=== PATIENT | female | born 1990 | race Caucasian/White ===

== ENCOUNTER 2019-01-22 14:38 | Emergency (ER) | payer OTHER ==
[~2019-01-22] VITALS: Ht 167.6 cm; Wt 74.8 kg
[~2019-01-22 14:38] MED LIST: ACET325 PO; Acetaminophen-1 EAC1 PO; Bactrim Ds Tab1 EACH PO; CYCL10 PO; HYDACE5 PO; HYDHCL25 PO; IBUP600 PO; IBUP800 PO; MULVITMINE; RXCYCL10 PO; RXHYDACE PO
[2019-01-22] MEDS ORDERED: CYCL10 PO (17:03)
[2019-01-22] MEDS ORDERED: Percocet 5-3251 EACH PO (17:03)
== END 2019-01-22 17:29 | disposition home or self-care (01) ==
LOC: ER 14:38
DX: S93.402A Sprain of unspecified ligament of left ankle, initial encounter (principal); Z88.8 Allergy status to other drugs, medicaments and biological substances; Z87.891 Personal history of nicotine dependence; X58.XXXA Exposure to other specified factors, initial encounter
CPT/HCPCS: 99283

== ENCOUNTER 2019-01-26 11:42 | Emergency (ER) | payer OTHER ==
[~2019-01-26] VITALS: Ht 167.6 cm; Wt 77.1 kg
[~2019-01-26 11:42] MED LIST changes: +Percocet 5-3251 EACH PO
[2019-01-26] MEDS ORDERED: Percocet 5-3251 EACH PO (11:57)
[2019-01-26] MEDS ORDERED: QUET25 (11:57)
[2019-01-26] MEDS ORDERED: PRAZ2 (11:58)
[2019-01-26] MEDS ORDERED: LATUDA20 MG (11:58)
[2019-01-26 13:02] LABS: Source, Urine Clean Catch
[2019-01-26 13:07] LABS: Bilirubin, Urine Neg (Neg); Blood, Urine 2+ (Neg); Glucose Qualitative, Urine Neg (Neg); Ketones, Urine Neg (Neg); Leukocyte Esterase, Urine 3+ (Neg); Nitrite, Urine Neg (Neg); Protein, Urine 2+ (Neg); Urobilinogen, Urine 1+ (Normal); pH, Urine 6.5 (5.0-8.0)
[2019-01-26] MEDS ORDERED: IBUP400 PO (13:26)
[2019-01-26] MEDS ORDERED: FAMC250 PO (13:26)
[2019-01-26] MEDS ORDERED: HYDR1TAB94 PO (13:26)
[2019-01-26 13:31] LABS: Appearance, Urine Clear (Clear); Color, Urine Yellow (P-Yellow)
[2019-01-26 13:32] LABS: Trichomonas Few /hpf
[2019-01-26 13:37] LABS: Bacteria Mod /hpf; Squamous Epithelial Cells Mod /hpf (Few); White Blood Cells, Urine 25-50 /hpf (0-5)
[2019-01-26 13:38] LABS: Transitional Epithelial Cells Few /hpf (0-Rare)
== END 2019-01-26 13:40 | disposition home or self-care (01) ==
LOC: ER 11:42
PROVIDERS: Emergency Medicine
DX: N76.2 Acute vulvitis (principal); Z88.8 Allergy status to other drugs, medicaments and biological substances; Z79.899 Other long term (current) drug therapy; Z87.891 Personal history of nicotine dependence
CPT/HCPCS: 81001; 81025; 87086; 87529; 96372; 99283-25; J1885

== ENCOUNTER 2019-03-22 12:12 | Emergency (ER) | payer OTHER ==
[~2019-03-22] VITALS: Ht 167.6 cm; Wt 77.1 kg
[~2019-03-22 12:12] MED LIST changes: +FAMC250 PO; +HYDR1TAB94 PO; +IBUP400 PO; +LATUDA20 MG; +PRAZ2; +QUET25
[2019-03-22 13:04] LABS: BASOPHILS ABSOLUTE AUTO 0.02 K/mm3 (0.00-0.23); BASOPHILS PERCENT AUTO 0 % (0-2); EOSINOPHILS ABSOLUTE AUTO 0.22 K/mm3 (0.00-0.68); EOSINOPHILS PERCENT AUTO 3 % (0-6); Hemoglobin 15.1 g/dL (11.5-16.0); IMMATURE GRAN ABSOLUTE AUTO 0.02 K/mm3 (0.00-0.10); IMMATURE GRAN PERCENT AUTO 0 % (0-1); LYMPHOCYTES ABSOLUTE AUTO 1.37 K/mm3 (0.84-5.20); LYMPHOCYTES PERCENT AUTO 17 % (21-46); MONOCYTES PERCENT AUTO 10 % (4-13); Mean Corpuscular HGB 29.7 pg (26.0-34.0); Mean Corpuscular HGB Conc 33.6 g/dL (31.5-36.5); Mean Corpuscular Volume 89 fL (80-100); Mean Platelet Volume 11.6 fL (9.1-12.4); NEUTROPHILS ABSOLUTE AUTO 5.67 K/mm3 (1.96-9.15); NEUTROPHILS PERCENT AUTO 70 % (41-73); Platelet Count 197 K/mm3 (150-400); RDW Coefficient Variation 13.5 % (11.7-14.2); RDW Standard Deviation 43.7 fL (35.1-46.3); Red Blood Cell Count 5.08 M/mm3 (3.80-5.20)
[2019-03-22 13:20] LABS: Source, Urine Clean Catch
[2019-03-22 13:21] LABS: Alanine Aminotransfer (ALT/SGP 26 U/L (12-78); Albumin, Blood 4.3 g/dL (3.4-5.0); Albumin/Globulin Ratio 1.2 (0.8-1.8); Alk Phos 64 U/L (50-136); Anion Gap 6 mmol/L (6-16); Aspartate Aminotrans (AST/SGOT 20 U/L (12-37); Bilirubin, Total 1.5 mg/dL (0.1-1.0); Blood Urea Nitrogen 10 mg/dL (8-24); CO2, Blood 27 mmol/L (21-32); Chloride, Blood 107 mmol/L (98-108); Creatinine, Blood 0.83 mg/dL (0.40-1.00); Globulin, Blood 3.7 g/dL (2.2-4.0); Glomerular Filtration Rate >60 (60-); Glucose, Blood 92 mg/dL (70-99); Potassium, Blood 3.6 mmol/L (3.5-5.5); Sodium, Blood 140 mmol/L (136-145)
[2019-03-22 13:34] LABS: Blood, Urine 4+ (Neg); Glucose Qualitative, Urine Neg (Neg); Ketones, Urine 2+ (Neg); Leukocyte Esterase, Urine 3+ (Neg); Nitrite, Urine Pos (Neg); Protein, Urine 2+ (Neg); Urobilinogen, Urine 2+ (Normal)
[2019-03-22 13:45] LABS: Appearance, Urine Hazy (Clear); Bilirubin, Urine 1+ (Neg); Color, Urine Yellow (P-Yellow)
[2019-03-28] MEDS ORDERED: Macrobid 100 M100 MG PO (12:23)
== END 2019-03-22 16:25 | disposition home or self-care (01) ==
LOC: ER 12:12
PROVIDERS: Physician Assistant
DX: O20.9 Hemorrhage in early pregnancy, unspecified (principal); Z88.8 Allergy status to other drugs, medicaments and biological substances; Z79.899 Other long term (current) drug therapy; Z87.891 Personal history of nicotine dependence; Z3A.01 Less than 8 weeks gestation of pregnancy
CPT/HCPCS: 36415; 76801; 76817; 80053; 84702; 84703; 85025; 86900; 86901; 87086; 87147; 99284-25

== ENCOUNTER → 2019-03-26 | Outpatient (CLI) | payer OTHER ==
[~2019-03-26] MED LIST changes: +Macrobid 100 M100 MG PO
== END | disposition home or self-care (01) ==
LOC: LAB 15:21 → LAB SHORT 15:21
DX: O20.0 Threatened abortion (principal)
CPT/HCPCS: 84702

== ENCOUNTER 2019-04-10 22:08 | Emergency (ER) | payer OTHER ==
[~2019-04-10] VITALS: Ht 167.6 cm; Wt 63.5 kg
[2019-04-11] MEDS ORDERED: NITR100CA PO (00:10)
[2019-04-11] MEDS ORDERED: Vibramycin100 MG PO (01:30)
== END 2019-04-11 02:19 | disposition home or self-care (01) ==
LOC: ER 22:08
DX: N93.9 Abnormal uterine and vaginal bleeding, unspecified (principal); L89.899 Pressure ulcer of other site, unspecified stage; F17.200 Nicotine dependence, unspecified, uncomplicated
CPT/HCPCS: 36415; 84702; 96372; 99283-25; A9270; A9270-GY; J0696

== ENCOUNTER 2019-04-14 06:22 | Emergency (ER) | payer OTHER ==
[~2019-04-14] VITALS: Ht 167.6 cm; Wt 76.2 kg
[~2019-04-14 06:22] MED LIST changes: +NITR100CA PO; +Vibramycin100 MG PO
[2019-04-14] MEDS ORDERED: Acetaminophen-1 EAC1 PO (08:00)
[2019-04-14] MEDS ORDERED: IBUP800 PO (08:00)
[2019-04-14] MEDS ORDERED: Robaxin-750750 MG PO (08:00)
[2019-04-15] MEDS ORDERED: QUET100 PO (00:42)
== END 2019-04-14 08:24 | disposition home or self-care (01) ==
LOC: ER 06:22
DX: G89.29 Other chronic pain (principal); M54.2 Cervicalgia; M25.551 Pain in right hip; Z88.8 Allergy status to other drugs, medicaments and biological substances
CPT/HCPCS: 99283

== ENCOUNTER 2019-04-14 23:50 | Emergency (ER) | payer OTHER ==
[~2019-04-14] VITALS: Ht 167.6 cm; Wt 77.1 kg
[~2019-04-14 23:50] MED LIST changes: +Robaxin-750750 MG PO
[2019-04-15] MEDS ORDERED: QUET100 PO (00:42)
[2019-04-16] MEDS ORDERED: NAPR550 PO (15:10)
[2019-04-16] MEDS ORDERED: Norco 5-325 Ta1 EACH PO (15:10)
== END 2019-04-15 01:28 | disposition home or self-care (01) ==
LOC: ER 23:50
DX: F43.0 Acute stress reaction (principal); F17.200 Nicotine dependence, unspecified, uncomplicated; Z88.8 Allergy status to other drugs, medicaments and biological substances; Z79.899 Other long term (current) drug therapy
CPT/HCPCS: 99283

== ENCOUNTER 2019-04-16 11:14 | Emergency (ER) | payer OTHER ==
[~2019-04-16] VITALS: Ht 167.6 cm; Wt 81.7 kg
[~2019-04-16 11:14] MED LIST changes: +QUET100 PO
[2019-04-16] MEDS ORDERED: NAPR550 PO (15:10)
[2019-04-16] MEDS ORDERED: Norco 5-325 Ta1 EACH PO (15:10)
== END 2019-04-16 15:46 | disposition home or self-care (01) ==
LOC: ER 11:14
DX: M54.2 Cervicalgia (principal); M54.9 Dorsalgia, unspecified; J45.909 Unspecified asthma, uncomplicated; Z87.440 Personal history of urinary (tract) infections; Z79.899 Other long term (current) drug therapy
CPT/HCPCS: 99283; A9270-GY

== ENCOUNTER 2019-04-25 14:08 | Emergency (ER) | payer OTHER ==
[~2019-04-25] VITALS: Ht 167.6 cm; Wt 77.1 kg
[~2019-04-25 14:08] MED LIST changes: +NAPR550 PO; +Norco 5-325 Ta1 EACH PO
[2019-04-25] MEDS ORDERED: SERT50 PO (15:11)
[2019-04-25] MEDS ORDERED: LATUDA80 MG PO (15:11)
[2019-04-25] MEDS ORDERED: Keflex500 MG PO (15:59)
[2019-04-25] MEDS ORDERED: Bactrim Ds Tab1 EACH PO (15:59)
== END 2019-04-25 16:35 | disposition home or self-care (01) ==
LOC: ER 14:08
DX: L03.317 Cellulitis of buttock (principal); F32.9 Major depressive disorder, single episode, unspecified; F17.200 Nicotine dependence, unspecified, uncomplicated; Z88.8 Allergy status to other drugs, medicaments and biological substances; Z79.899 Other long term (current) drug therapy
CPT/HCPCS: 73502; 99283-25

== ENCOUNTER 2019-04-26 22:11 | Emergency (ER) | payer OTHER ==
[~2019-04-26] VITALS: Ht 167.6 cm; Wt 77.1 kg
[~2019-04-26 22:11] MED LIST changes: +Keflex500 MG PO; +LATUDA80 MG PO; +SERT50 PO
[2019-04-26 23:09] LABS: BASOPHILS ABSOLUTE AUTO 0.05 K/mm3 (0.00-0.23); BASOPHILS PERCENT AUTO 0 % (0-2); EOSINOPHILS ABSOLUTE AUTO 0.02 K/mm3 (0.00-0.68); EOSINOPHILS PERCENT AUTO 0 % (0-6); Hematocrit 41.4 % (33.0-51.0); Hemoglobin 13.4 g/dL (11.5-16.0); IMMATURE GRAN ABSOLUTE AUTO 0.04 K/mm3 (0.00-0.10); IMMATURE GRAN PERCENT AUTO 0 % (0-1); LYMPHOCYTES ABSOLUTE AUTO 1.58 K/mm3 (0.84-5.20); LYMPHOCYTES PERCENT AUTO 10 % (21-46); MONOCYTES ABSOLUTE AUTO 1.58 K/mm3 (0.16-1.47); MONOCYTES PERCENT AUTO 10 % (4-13); Mean Corpuscular HGB Conc 32.4 g/dL (31.5-36.5); Mean Corpuscular Volume 93 fL (80-100); Mean Platelet Volume 12.5 fL (9.1-12.4); NEUTROPHILS ABSOLUTE AUTO 12.83 K/mm3 (1.96-9.15); NEUTROPHILS PERCENT AUTO 80 % (41-73); Platelet Count 147 K/mm3 (150-400); RDW Coefficient Variation 13.9 % (11.7-14.2); RDW Standard Deviation 47.7 fL (35.1-46.3); Red Blood Cell Count 4.46 M/mm3 (3.80-5.20)
[2019-04-26 23:29] LABS: Alanine Aminotransfer (ALT/SGP 17 U/L (12-78); Albumin, Blood 3.9 g/dL (3.4-5.0); Albumin/Globulin Ratio 0.8 (0.8-1.8); Alk Phos 57 U/L (50-136); Anion Gap 10 mmol/L (6-16); Aspartate Aminotrans (AST/SGOT 9 U/L (12-37); Blood Urea Nitrogen 20 mg/dL (8-24); Bun/Creatinine Ratio 19.4 (12.0-20.0); CO2, Blood 24 mmol/L (21-32); Calcium, Blood 9.2 mg/dL (8.5-10.1); Chloride, Blood 102 mmol/L (98-108); Creatinine, Blood 1.03 mg/dL (0.40-1.00); Globulin, Blood 4.6 g/dL (2.2-4.0); Glomerular Filtration Rate >60 (60-); Glucose, Blood 82 mg/dL (70-99); Sodium, Blood 136 mmol/L (136-145); Total Protein, Blood 8.5 g/dL (6.4-8.2); Troponin I <0.015 ng/mL (0.000-0.040)
== END 2019-04-27 04:37 | disposition home or self-care (01) ==
LOC: ER 22:11
PROVIDERS: Physician Assistant
DX: L02.31 Cutaneous abscess of buttock (principal); R07.9 Chest pain, unspecified; R55 Syncope and collapse; Z88.8 Allergy status to other drugs, medicaments and biological substances; Z79.899 Other long term (current) drug therapy; F17.210 Nicotine dependence, cigarettes, uncomplicated
CPT/HCPCS: 10060; 36415; 71046; 80053; 84484; 85025; 93005; 93010; 96361-59; 96374-59; 99284-25; A9270; J2270; J7030

== ENCOUNTER 2019-04-30 14:23 | Emergency (ER) | payer OTHER ==
[~2019-04-30] VITALS: Ht 167.6 cm; Wt 67.6 kg
[2019-04-30] MEDS ORDERED: Cyclobenzaprine5 MG PO (15:35)
[2019-04-30] MEDS ORDERED: KETO10 PO (15:35)
== END 2019-04-30 15:54 | disposition home or self-care (01) ==
LOC: ER 14:23
DX: S01.552A Open bite of oral cavity, initial encounter (principal); M26.621 Arthralgia of right temporomandibular joint; X58.XXXA Exposure to other specified factors, initial encounter; Z79.899 Other long term (current) drug therapy; F17.210 Nicotine dependence, cigarettes, uncomplicated
CPT/HCPCS: 99283

== ENCOUNTER 2019-05-18 00:42 | Emergency (ER) | payer OTHER ==
[~2019-05-18] VITALS: Ht 167.6 cm; Wt 77.1 kg
[~2019-05-18 00:42] MED LIST changes: +Cyclobenzaprine5 MG PO; +KETO10 PO
[2019-05-18] MEDS ORDERED: Acetaminophen-1 EAC1 PO (03:46)
[2019-05-18] MEDS ORDERED: IBUP600 PO (03:46)
== END 2019-05-18 05:48 | disposition home or self-care (01) ==
LOC: ER 00:42
DX: S93.401A Sprain of unspecified ligament of right ankle, initial encounter (principal); J45.909 Unspecified asthma, uncomplicated; F32.9 Major depressive disorder, single episode, unspecified; Z87.440 Personal history of urinary (tract) infections; F17.200 Nicotine dependence, unspecified, uncomplicated; X58.XXXA Exposure to other specified factors, initial encounter
CPT/HCPCS: 73610; 99283-25

== ENCOUNTER 2019-06-12 15:07 | Emergency (ER) | payer OTHER ==
[~2019-06-12] VITALS: Ht 167.6 cm; Wt 66.2 kg
[2019-06-12] MEDS ORDERED: Seroquel100 MG PO (15:59)
[2019-06-12] MEDS ORDERED: CEPH500 PO (17:41)
[2019-06-12] MEDS ORDERED: ONDA4ODT MM (17:41)
[2019-06-12] MEDS ORDERED: Bactrim Ds Tab1 EACH PO (17:41)
== END 2019-06-12 17:54 | disposition home or self-care (01) ==
LOC: ER 15:07
DX: L02.612 Cutaneous abscess of left foot (principal); R59.0 Localized enlarged lymph nodes; Z79.899 Other long term (current) drug therapy; J45.909 Unspecified asthma, uncomplicated; D32.9 Benign neoplasm of meninges, unspecified; F17.210 Nicotine dependence, cigarettes, uncomplicated
CPT/HCPCS: 10060; 73502; 93971; 96372-59; 99284-25; J1885

== ENCOUNTER → 2019-06-18 | Outpatient (CLI) | payer OTHER ==
[~2019-06-18] MED LIST changes: +Buspirone HCl7.5 MG PO; +CEPH500 PO; +ONDA4ODT MM; +Seroquel100 MG PO
[2019-06-18 12:37] LABS: BASOPHILS ABSOLUTE AUTO 0.02 K/mm3 (0.00-0.23); BASOPHILS PERCENT AUTO 0 % (0-2); EOSINOPHILS ABSOLUTE AUTO 0.14 K/mm3 (0.00-0.68); EOSINOPHILS PERCENT AUTO 2 % (0-6); Hematocrit 39.2 % (33.0-51.0); Hemoglobin 13.2 g/dL (11.5-16.0); IMMATURE GRAN ABSOLUTE AUTO 0.01 K/mm3 (0.00-0.10); IMMATURE GRAN PERCENT AUTO 0 % (0-1); LYMPHOCYTES ABSOLUTE AUTO 2.21 K/mm3 (0.84-5.20); LYMPHOCYTES PERCENT AUTO 35 % (21-46); MONOCYTES ABSOLUTE AUTO 0.49 K/mm3 (0.16-1.47); MONOCYTES PERCENT AUTO 8 % (4-13); Mean Corpuscular HGB 30.2 pg (26.0-34.0); Mean Corpuscular HGB Conc 33.7 g/dL (31.5-36.5); Mean Corpuscular Volume 90 fL (80-100); Mean Platelet Volume 12.4 fL (9.1-12.4); NEUTROPHILS ABSOLUTE AUTO 3.44 K/mm3 (1.96-9.15); NEUTROPHILS PERCENT AUTO 55 % (41-73); Platelet Count 190 K/mm3 (150-400); RDW Coefficient Variation 13.6 % (11.7-14.2); Red Blood Cell Count 4.37 M/mm3 (3.80-5.20); White Blood Cell Count 6.31 K/mm3 (4.00-11.30)
[2019-06-18 13:06] LABS: Alanine Aminotransfer (ALT/SGP 16 U/L (12-78); Albumin, Blood 4.2 g/dL (3.4-5.0); Albumin/Globulin Ratio 1.2 (0.8-1.8); Alk Phos 58 U/L (40-126); Anion Gap 10 mmol/L (6-16); Aspartate Aminotrans (AST/SGOT 19 U/L (12-37); Bilirubin, Total 0.5 mg/dL (0.1-1.0); Blood Urea Nitrogen 13 mg/dL (8-24); Bun/Creatinine Ratio 13.3 (12.0-20.0); CO2, Blood 24 mmol/L (21-32); Calcium, Blood 8.6 mg/dL (8.5-10.1); Chloride, Blood 105 mmol/L (98-108); Creatinine, Blood 0.98 mg/dL (0.40-1.00); Globulin, Blood 3.6 g/dL (2.2-4.0); Glomerular Filtration Rate >60 (60-); Glucose, Blood 95 mg/dL (70-99); Potassium, Blood 4.2 mmol/L (3.5-5.5); Sodium, Blood 139 mmol/L (136-145); Thyroid Stimulating Hormone 0.637 uIU/mL (0.360-4.800); Total Protein, Blood 7.8 g/dL (6.4-8.2)
[2019-06-18 14:18] LABS: Percent Saturation 32.3 % (15.0-50.0)
== END | disposition home or self-care (01) ==
LOC: LAB EV 12:33 → LAB SHORT 12:33
PROVIDERS: Physician Assistant Medical
DX: R53.83 Other fatigue (principal)
CPT/HCPCS: 80053; 82728; 83540; 83550; 84443; 85025

== ENCOUNTER 2019-07-05 01:32 | Emergency (ER) | payer OTHER ==
[~2019-07-05] VITALS: Ht 167.6 cm; Wt 68.0 kg
[~2019-07-05 01:32] MED LIST changes: -Buspirone HCl7.5 MG PO
== END 2019-07-05 02:25 | disposition home or self-care (01) ==
LOC: ER 01:32
DX: M43.6 Torticollis (principal); F32.9 Major depressive disorder, single episode, unspecified; J45.909 Unspecified asthma, uncomplicated; F17.210 Nicotine dependence, cigarettes, uncomplicated; Z79.899 Other long term (current) drug therapy
CPT/HCPCS: 99283

== ENCOUNTER → 2019-07-06 | Outpatient (CLI) | payer OTHER ==
[~2019-07-06] MED LIST changes: +Buspirone HCl7.5 MG PO
[2019-07-08 04:06] LABS: CHLAMYDIA TRACHOMATIS, NAA Negative (Negative); NEISSERIA GONORRHOEAE, NAA Negative (Negative)
== END | disposition home or self-care (01) ==
LOC: LAB SHORT 11:24 → LAB EV 11:24
PROVIDERS: Family Medicine
DX: Z20.9 Contact with and (suspected) exposure to unspecified communicable disease (principal)
CPT/HCPCS: 87070; 87205; 87491; 87591

== ENCOUNTER 2019-08-10 21:49 | Emergency (ER) | payer OTHER ==
[~2019-08-10] VITALS: Ht 167.6 cm; Wt 68.0 kg
[~2019-08-10 21:49] MED LIST changes: -Buspirone HCl7.5 MG PO
[2019-08-11] MEDS ORDERED: Buspirone HCl7.5 MG PO (01:44)
== END 2019-08-11 02:41 | disposition home or self-care (01) ==
LOC: ER 21:49
DX: M54.6 Pain in thoracic spine (principal); G89.29 Other chronic pain; F15.10 Other stimulant abuse, uncomplicated; F32.9 Major depressive disorder, single episode, unspecified; J45.909 Unspecified asthma, uncomplicated; F17.210 Nicotine dependence, cigarettes, uncomplicated
CPT/HCPCS: 99283

== ENCOUNTER → 2019-08-22 | Outpatient (CLI) | payer OTHER ==
[~2019-08-22] MED LIST changes: +Buspirone HCl7.5 MG PO
[2019-08-26 07:06] LABS: CHLAMYDIA BY NAA Negative (Negative); GONOCOCCUS BY NAA Negative (Negative); TRICH VAG BY NAA Negative (Negative)
== END ==
LOC: LAB 15:32 → LAB SHORT 15:32
PROVIDERS: Registered Nurse Community Health
DX: Z11.3 Encounter for screening for infections with a predominantly sexual mode of transmission (principal); Z72.52 High risk homosexual behavior; Z72.51 High risk heterosexual behavior
CPT/HCPCS: 87491; 87591; 87661

== ENCOUNTER → 2019-10-13 | Outpatient (CLI) | payer OTHER | END | disposition home or self-care (01) | LOC: LAB EV 13:50 → LAB SHORT 13:50 | DX: R30.0 Dysuria (principal); R30.9 Painful micturition, unspecified | CPT/HCPCS: 87077; 87086; 87147; 87186 ==

== ENCOUNTER 2019-10-30 10:04 | Emergency (ER) | payer OTHER ==
[~2019-10-30] VITALS: Ht 167.6 cm; Wt 63.5 kg
[2019-10-30] MEDS ORDERED: HYDHCL25 PO (12:46)
== END 2019-10-30 13:13 | disposition home or self-care (01) ==
LOC: ER 10:04
DX: M25.571 Pain in right ankle and joints of right foot (principal); M54.5 Low back pain; G47.00 Insomnia, unspecified; F17.210 Nicotine dependence, cigarettes, uncomplicated
CPT/HCPCS: 72100; 73502; 73610; 99283-25

== ENCOUNTER 2020-09-02 15:19 | Emergency (ER) | payer OTHER ==
[~2020-09-02] VITALS: Ht 167.6 cm; Wt 59.0 kg
[2020-09-02 20:52] LABS: BASOPHILS ABSOLUTE AUTO 0.02 K/mm3 (0.00-0.23); BASOPHILS PERCENT AUTO 0 % (0-2); EOSINOPHILS ABSOLUTE AUTO 0.13 K/mm3 (0.00-0.68); EOSINOPHILS PERCENT AUTO 2 % (0-6); Hemoglobin 14.6 g/dL (11.5-16.0); IMMATURE GRAN ABSOLUTE AUTO 0.01 K/mm3 (0.00-0.10); IMMATURE GRAN PERCENT AUTO 0 % (0-1); LYMPHOCYTES ABSOLUTE AUTO 2.41 K/mm3 (0.84-5.20); LYMPHOCYTES PERCENT AUTO 36 % (21-46); MONOCYTES ABSOLUTE AUTO 0.53 K/mm3 (0.16-1.47); MONOCYTES PERCENT AUTO 8 % (4-13); Mean Corpuscular HGB 29.4 pg (26.0-34.0); Mean Corpuscular HGB Conc 32.4 g/dL (31.5-36.5); Mean Corpuscular Volume 91 fL (80-100); Mean Platelet Volume 11.3 fL (9.1-12.4); NEUTROPHILS ABSOLUTE AUTO 3.68 K/mm3 (1.96-9.15); NEUTROPHILS PERCENT AUTO 54 % (41-73); Platelet Count 180 K/mm3 (150-400); RDW Coefficient Variation 13.3 % (11.7-14.2); RDW Standard Deviation 44.9 fL (35.1-46.3); Red Blood Cell Count 4.96 M/mm3 (3.80-5.20); White Blood Cell Count 6.78 K/mm3 (4.00-11.30)
[2020-09-02 21:08] LABS: Alanine Aminotransfer (ALT/SGP 23 U/L (12-78); Albumin, Blood 4.5 g/dL (3.4-5.0); Albumin/Globulin Ratio 1.3 (0.8-1.8); Alk Phos 60 U/L (50-136); Anion Gap 4 mmol/L (6-16); Aspartate Aminotrans (AST/SGOT 15 U/L (12-37); Blood Urea Nitrogen 12 mg/dL (8-24); CO2, Blood 30 mmol/L (21-32); Calcium, Blood 9.4 mg/dL (8.5-10.1); Chloride, Blood 107 mmol/L (98-108); Ethanol (Alcohol), Blood, Med <3 mg/dL; Globulin, Blood 3.4 g/dL (2.2-4.0); Glomerular Filtration Rate >60 (60-); Glucose, Blood 79 mg/dL (70-99); Potassium, Blood 3.9 mmol/L (3.5-5.5); Salicylate 1.7 mg/dL (2.8-20.0); Sodium, Blood 141 mmol/L (136-145); Total Protein, Blood 7.9 g/dL (6.4-8.2)
[2020-09-02 21:12] LABS: Acetaminophen, Random <2.0 ug/mL (10.0-30.0)
[2020-09-02 21:34] LABS: Source, Urine Clean Catch
[2020-09-02 21:40] LABS: Appearance, Urine Hazy (Clear); Bilirubin, Urine Neg (Neg); Blood, Urine 1+ (Neg); Color, Urine Yellow (P-Yellow); Glucose Qualitative, Urine Neg (Neg); Ketones, Urine 1+ (Neg); Leukocyte Esterase, Urine 3+ (Neg); Nitrite, Urine Pos (Neg); Protein, Urine Neg (Neg); Specific Gravity, Urine 1.015 (1.003-1.022); Urobilinogen, Urine NORM (Normal)
[2020-09-02 21:51] LABS: Bacteria Many /hpf; Squamous Epithelial Cells Few /hpf (Few)
[2020-09-02 21:52] LABS: U Amphetamine Screen DETECTED; U Barbituate Screen Not Detected; U Benzodiazapine Screen Not Detected; U Buprenorphine Screen Not Detected; U Cannabinoids Screen Not Detected; U Cocaine Screen Not Detected; U Methadone Screen Not Detected; U Methamphetamine Screen DETECTED; U Opiates Screen Not Detected; U Oxycodone Screen Not Detected; U Phencyclidine Screen Not Detected; U Propoxyphene Screen Not Detected
[2020-09-02] MEDS ORDERED: CEFP200 PO (22:00)
== END 2020-09-02 22:13 | disposition home or self-care (01) ==
LOC: ER 15:19
PROVIDERS: Emergency Medicine
DX: N39.0 Urinary tract infection, site not specified (principal); F32.9 Major depressive disorder, single episode, unspecified; F17.210 Nicotine dependence, cigarettes, uncomplicated
CPT/HCPCS: 36415; 80053; 81001; 81025; 85025; 87077; 87086; 87186; 99284; A9270-GY; G0480; J7030

== ENCOUNTER 2021-04-23 10:57 | Emergency (ER) | payer OTHER ==
[~2021-04-23] VITALS: Ht 167.6 cm; Wt 61.2 kg
[~2021-04-23 10:57] MED LIST changes: +CEFP200 PO
[2021-04-23 12:16] LABS: BASOPHILS ABSOLUTE AUTO 0.02 K/mm3 (0.00-0.23); BASOPHILS PERCENT AUTO 0 % (0-2); EOSINOPHILS ABSOLUTE AUTO 0.05 K/mm3 (0.00-0.68); EOSINOPHILS PERCENT AUTO 1 % (0-6); Hematocrit 43.9 % (33.0-51.0); IMMATURE GRAN ABSOLUTE AUTO 0.02 K/mm3 (0.00-0.10); IMMATURE GRAN PERCENT AUTO 0 % (0-1); LYMPHOCYTES ABSOLUTE AUTO 1.99 K/mm3 (0.84-5.20); LYMPHOCYTES PERCENT AUTO 22 % (21-46); MONOCYTES ABSOLUTE AUTO 0.66 K/mm3 (0.16-1.47); MONOCYTES PERCENT AUTO 7 % (4-13); Mean Corpuscular HGB 29.4 pg (26.0-34.0); Mean Corpuscular HGB Conc 34.2 g/dL (31.5-36.5); Mean Corpuscular Volume 86 fL (80-100); Mean Platelet Volume 12.4 fL (9.1-12.4); NEUTROPHILS ABSOLUTE AUTO 6.52 K/mm3 (1.96-9.15); NEUTROPHILS PERCENT AUTO 71 % (41-73); Platelet Count 151 K/mm3 (150-400); RDW Coefficient Variation 12.1 % (11.7-14.2); RDW Standard Deviation 38.3 fL (35.1-46.3); Red Blood Cell Count 5.11 M/mm3 (3.80-5.20); White Blood Cell Count 9.26 K/mm3 (4.00-11.30)
[2021-04-23 12:37] LABS: Anion Gap 7 mmol/L (6-16); Blood Urea Nitrogen 11 mg/dL (8-24); Bun/Creatinine Ratio 12.4 (12.0-20.0); CO2, Blood 25 mmol/L (21-32); Chloride, Blood 106 mmol/L (98-108); Creatinine, Blood 0.89 mg/dL (0.40-1.00); Glomerular Filtration Rate >60 (60-); Glucose, Blood 88 mg/dL (70-99); Potassium, Blood 3.5 mmol/L (3.5-5.5); Sodium, Blood 138 mmol/L (136-145)
== END 2021-04-23 14:08 | disposition home or self-care (01) ==
LOC: ER 10:57
PROVIDERS: Emergency Medicine
DX: R79.89 Other specified abnormal findings of blood chemistry (principal); Z87.898 Personal history of other specified conditions; F17.210 Nicotine dependence, cigarettes, uncomplicated
CPT/HCPCS: 36415; 80048; 83880; 85025; 93005; 93010; 99283-25

== ENCOUNTER 2021-07-01 05:17 | Emergency (ER) | payer OTHER ==
[~2021-07-01] VITALS: Ht 167.6 cm; Wt 70.8 kg
== END 2021-07-01 06:00 | disposition home or self-care (01) ==
LOC: ER 05:17
DX: G89.29 Other chronic pain (principal); M54.2 Cervicalgia; M54.6 Pain in thoracic spine; M54.5 Low back pain; F17.210 Nicotine dependence, cigarettes, uncomplicated
CPT/HCPCS: 99283

== ENCOUNTER 2021-07-20 04:35 | Observation (INO) | payer OTHER ==
[~2021-07-20] VITALS: Ht 167.6 cm; Wt 68.0 kg
[2021-07-20 05:26] LABS: BASOPHILS ABSOLUTE AUTO 0.04 K/mm3 (0.00-0.23); BASOPHILS PERCENT AUTO 1 % (0-2); EOSINOPHILS ABSOLUTE AUTO 0.34 K/mm3 (0.00-0.68); EOSINOPHILS PERCENT AUTO 6 % (0-6); Hemoglobin 13.4 g/dL (11.5-16.0); IMMATURE GRAN ABSOLUTE AUTO 0.02 K/mm3 (0.00-0.10); IMMATURE GRAN PERCENT AUTO 0 % (0-1); LYMPHOCYTES ABSOLUTE AUTO 1.94 K/mm3 (0.84-5.20); LYMPHOCYTES PERCENT AUTO 32 % (21-46); MONOCYTES ABSOLUTE AUTO 0.71 K/mm3 (0.16-1.47); MONOCYTES PERCENT AUTO 12 % (4-13); Mean Corpuscular HGB 30.2 pg (26.0-34.0); Mean Corpuscular HGB Conc 33.5 g/dL (31.5-36.5); Mean Corpuscular Volume 90 fL (80-100); Mean Platelet Volume 11.9 fL (9.1-12.4); NEUTROPHILS ABSOLUTE AUTO 3.06 K/mm3 (1.96-9.15); NEUTROPHILS PERCENT AUTO 50 % (41-73); Platelet Count 188 K/mm3 (150-400); RDW Coefficient Variation 14.4 % (11.7-14.2); RDW Standard Deviation 48.3 fL (35.1-46.3); Red Blood Cell Count 4.43 M/mm3 (3.80-5.20); White Blood Cell Count 6.11 K/mm3 (4.00-11.30)
[2021-07-20 05:44] LABS: Alanine Aminotransfer (ALT/SGP 37 U/L (12-78); Albumin, Blood 3.9 g/dL (3.4-5.0); Albumin/Globulin Ratio 1.1 (0.8-1.8); Alk Phos 62 U/L (50-136); Anion Gap 5 mmol/L (6-16); Aspartate Aminotrans (AST/SGOT 41 U/L (12-37); Bilirubin, Total 0.7 mg/dL (0.1-1.0); Blood Urea Nitrogen 12 mg/dL (8-24); Bun/Creatinine Ratio 15.1 (12.0-20.0); CO2, Blood 25 mmol/L (21-32); Calcium, Blood 8.2 mg/dL (8.5-10.1); Chloride, Blood 108 mmol/L (98-108); Ethanol (Alcohol), Blood, Med 28 mg/dL; Globulin, Blood 3.4 g/dL (2.2-4.0); Glomerular Filtration Rate >60 (60-); Glucose, Blood 77 mg/dL (70-99); Potassium, Blood 4.1 mmol/L (3.5-5.5); Salicylate <1.7 mg/dL (2.8-20.0); Sodium, Blood 138 mmol/L (136-145); Total Protein, Blood 7.3 g/dL (6.4-8.2)
[2021-07-20 05:48] LABS: Acetaminophen, Random <2.0 ug/mL (10.0-30.0)
[2021-07-20 09:39] LABS: Source, Urine Voided
[2021-07-20 09:44] LABS: Appearance, Urine Clear (Clear); Bilirubin, Urine Neg (Neg); Blood, Urine 1+ (Neg); Color, Urine Yellow (P-Yellow); Glucose Qualitative, Urine Neg (Neg); Ketones, Urine Neg (Neg); Leukocyte Esterase, Urine 3+ (Neg); Nitrite, Urine Neg (Neg); Protein, Urine 2+ (Neg); Urobilinogen, Urine NORM (Normal)
[2021-07-20 09:55] LABS: Bacteria Mod /hpf; White Blood Cells, Urine 25-50 /hpf (0-5)
[2021-07-20 09:57] LABS: Trichomonas Many /hpf
[2021-07-20 09:58] LABS: Squamous Epithelial Cells Mod /hpf (Few); U Amphetamine Screen DETECTED
[2021-07-20 09:59] LABS: U Barbituate Screen Not Detected; U Benzodiazapine Screen Not Detected; U Buprenorphine Screen Not Detected; U Cannabinoids Screen Not Detected; U Cocaine Screen Not Detected; U Methadone Screen Not Detected; U Methamphetamine Screen DETECTED; U Opiates Screen Not Detected; U Oxycodone Screen Not Detected; U Phencyclidine Screen Not Detected; U Propoxyphene Screen Not Detected
[2021-07-20] MEDS ORDERED: ACETAMINOPHEN500 MG PO (11:20)
[2021-07-20] MEDS ORDERED: Zoloft50 MG PO (11:20)
== END 2021-07-20 19:02 | disposition home or self-care (01) ==
LOC: ER 04:35 → EOR 04:36
PROVIDERS: ADMIT Emergency Medicine
DX: F43.10 Post-traumatic stress disorder, unspecified (principal); F15.10 Other stimulant abuse, uncomplicated; F17.210 Nicotine dependence, cigarettes, uncomplicated; Z88.8 Allergy status to other drugs, medicaments and biological substances
CPT/HCPCS: 36415; 73562-RT; 80053; 81001; 81025; 85025; 87086; 99285-25; G0378; G0480

== ENCOUNTER 2022-03-27 23:46 | Emergency (ER) | payer OTHER ==
[~2022-03-27] VITALS: Ht 167.6 cm; Wt 62.6 kg
[~2022-03-27 23:46] MED LIST changes: +ACETAMINOPHEN500 MG PO; +Zoloft50 MG PO
== END 2022-03-28 01:06 | disposition home or self-care (01) ==
LOC: ER 23:46
DX: Z04.89 Encounter for examination and observation for other specified reasons (principal); O99.332 Smoking (tobacco) complicating pregnancy, second trimester; Z3A.24 24 weeks gestation of pregnancy; Z79.899 Other long term (current) drug therapy
CPT/HCPCS: 99283

== ENCOUNTER → 2022-04-05 | Outpatient (CLI) | payer OTHER ==
[2022-04-05 14:08] LABS: Source, Urine Clean Catch
[2022-04-05 15:11] LABS: Bacteria Mod /hpf; Squamous Epithelial Cells Few /hpf (Few)
== END | disposition home or self-care (01) ==
LOC: LAB SHORT 13:44
PROVIDERS: Family Medicine
DX: Z34.93 Encounter for supervision of normal pregnancy, unspecified, third trimester (principal)
CPT/HCPCS: 81015

== ENCOUNTER 2022-04-06 18:41 | Observation (INO) | payer OTHER ==
[~2022-04-06] VITALS: Ht 167.6 cm; Wt 63.5 kg
[2022-04-06 20:12] LABS: BASOPHILS ABSOLUTE AUTO 0.02 K/mm3 (0.00-0.23); BASOPHILS PERCENT AUTO 0 % (0-2); EOSINOPHILS ABSOLUTE AUTO 0.14 K/mm3 (0.00-0.68); EOSINOPHILS PERCENT AUTO 1 % (0-6); Hematocrit 33.1 % (33.0-51.0); Hemoglobin 11.1 g/dL (11.5-16.0); IMMATURE GRAN ABSOLUTE AUTO 0.05 K/mm3 (0.00-0.10); IMMATURE GRAN PERCENT AUTO 1 % (0-1); LYMPHOCYTES ABSOLUTE AUTO 1.99 K/mm3 (0.84-5.20); LYMPHOCYTES PERCENT AUTO 20 % (21-46); MONOCYTES ABSOLUTE AUTO 0.62 K/mm3 (0.16-1.47); MONOCYTES PERCENT AUTO 6 % (4-13); Mean Corpuscular HGB 29.1 pg (26.0-34.0); Mean Corpuscular HGB Conc 33.5 g/dL (31.5-36.5); Mean Corpuscular Volume 87 fL (80-100); Mean Platelet Volume 10.5 fL (9.1-12.4); NEUTROPHILS ABSOLUTE AUTO 7.41 K/mm3 (1.96-9.15); NEUTROPHILS PERCENT AUTO 72 % (41-73); Platelet Count 264 K/mm3 (150-400); RDW Coefficient Variation 12.9 % (11.7-14.2); RDW Standard Deviation 40.4 fL (35.1-46.3); Red Blood Cell Count 3.81 M/mm3 (3.80-5.20); White Blood Cell Count 10.23 K/mm3 (4.00-11.30)
[2022-04-06 20:28] LABS: Ethanol (Alcohol), Blood, Med <3 mg/dL; Salicylate <1.7 mg/dL (2.8-20.0)
[2022-04-06 20:31] LABS: Acetaminophen, Random <2.0 ug/mL (10.0-30.0); Alanine Aminotransfer (ALT/SGP 78 U/L (12-78); Albumin, Blood 2.4 g/dL (3.4-5.0); Albumin/Globulin Ratio 0.6 (0.8-1.8); Alk Phos 161 U/L (50-136); Anion Gap 6 mmol/L (6-16); Aspartate Aminotrans (AST/SGOT 36 U/L (12-37); Bilirubin, Total 0.4 mg/dL (0.1-1.0); Blood Urea Nitrogen 11 mg/dL (8-24); Bun/Creatinine Ratio 17.1 (12.0-20.0); CO2, Blood 25 mmol/L (21-32); Calcium, Blood 8.8 mg/dL (8.5-10.1); Chloride, Blood 107 mmol/L (98-108); Creatinine, Blood 0.65 mg/dL (0.40-1.00); Globulin, Blood 4.2 g/dL (2.2-4.0); Glomerular Filtration Rate 120 (60-); Glucose, Blood 86 mg/dL (70-99); Potassium, Blood 3.7 mmol/L (3.5-5.5); Sodium, Blood 138 mmol/L (136-145); Total Protein, Blood 6.6 g/dL (6.4-8.2)
[2022-04-06 20:50] LABS: Influenza A, PCR NEGATIVE (NEGATIVE); Influenza B, PCR NEGATIVE (NEGATIVE); Resp Syncytial Virus, PCR NEGATIVE (NEGATIVE); SARS-Cov-2 (COVID-19) PCR, MMC NEGATIVE (NEGATIVE)
[2022-04-06 21:16] LABS: U Amphetamine Screen Not Detected; U Methamphetamine Screen Not Detected
[2022-04-06 21:17] LABS: U Barbituate Screen Not Detected; U Benzodiazapine Screen Not Detected; U Buprenorphine Screen Not Detected; U Cannabinoids Screen Not Detected; U Cocaine Screen Not Detected; U Methadone Screen Not Detected; U Opiates Screen Not Detected; U Oxycodone Screen Not Detected; U Phencyclidine Screen Not Detected; U Propoxyphene Screen Not Detected
== END 2022-04-21 09:20 ==
LOC: ER 18:41 → EOR 18:42
PROVIDERS: ADMIT Student in an Organized Health Care Education/Training Program
DX: O99.342 Other mental disorders complicating pregnancy, second trimester (principal); F20.9 Schizophrenia, unspecified; Z3A.27 27 weeks gestation of pregnancy; O99.332 Smoking (tobacco) complicating pregnancy, second trimester; F17.210 Nicotine dependence, cigarettes, uncomplicated; Z88.8 Allergy status to other drugs, medicaments and biological substances; Z20.822 Contact with and (suspected) exposure to COVID-19
CPT/HCPCS: 0241U; 59025; 80053; 85025; 99285; A9270; G0378; G0480; Q3014

== ENCOUNTER 2022-05-16 09:48 | Emergency (ER) | payer OTHER ==
[~2022-05-16] VITALS: Ht 172.7 cm; Wt 65.8 kg
== END 2022-05-16 10:29 | disposition home or self-care (01) ==
LOC: ER 09:48
DX: Z04.71 Encounter for examination and observation following alleged adult physical abuse (principal)
CPT/HCPCS: 99284

== ENCOUNTER 2022-05-18 15:13 | Observation (INO) | payer OTHER ==
[~2022-05-18] VITALS: Ht 167.6 cm; Wt 68.0 kg
[2022-05-18 18:06] LABS: BASOPHILS ABSOLUTE AUTO 0.04 K/mm3 (0.00-0.23); BASOPHILS PERCENT AUTO 1 % (0-2); EOSINOPHILS ABSOLUTE AUTO 0.13 K/mm3 (0.00-0.68); EOSINOPHILS PERCENT AUTO 2 % (0-6); Hematocrit 37.6 % (33.0-51.0); Hemoglobin 12.3 g/dL (11.5-16.0); IMMATURE GRAN ABSOLUTE AUTO 0.02 K/mm3 (0.00-0.10); IMMATURE GRAN PERCENT AUTO 0 % (0-1); LYMPHOCYTES PERCENT AUTO 24 % (21-46); MONOCYTES ABSOLUTE AUTO 0.57 K/mm3 (0.16-1.47); MONOCYTES PERCENT AUTO 7 % (4-13); Mean Corpuscular HGB Conc 32.7 g/dL (31.5-36.5); Mean Corpuscular Volume 86 fL (80-100); Mean Platelet Volume 11.7 fL (9.1-12.4); NEUTROPHILS ABSOLUTE AUTO 5.23 K/mm3 (1.96-9.15); NEUTROPHILS PERCENT AUTO 66 % (41-73); Platelet Count 199 K/mm3 (150-400); RDW Coefficient Variation 14.2 % (11.7-14.2); RDW Standard Deviation 43.8 fL (35.1-46.3); White Blood Cell Count 7.89 K/mm3 (4.00-11.30)
[2022-05-18 18:31] LABS: Ethanol (Alcohol), Blood, Med <3 mg/dL; Salicylate 2.3 mg/dL (2.8-20.0)
[2022-05-18 18:33] LABS: Alanine Aminotransfer (ALT/SGP 86 U/L (12-78); Albumin, Blood 2.9 g/dL (3.4-5.0); Albumin/Globulin Ratio 0.7 (0.8-1.8); Alk Phos 186 U/L (50-136); Anion Gap 6 mmol/L (6-16); Aspartate Aminotrans (AST/SGOT 56 U/L (12-37); Bilirubin, Total 0.9 mg/dL (0.1-1.0); Blood Urea Nitrogen 12 mg/dL (8-24); Bun/Creatinine Ratio 17.3 (12.0-20.0); CO2, Blood 23 mmol/L (21-32); Calcium, Blood 8.9 mg/dL (8.5-10.1); Chloride, Blood 108 mmol/L (98-108); Globulin, Blood 3.9 g/dL (2.2-4.0); Glomerular Filtration Rate 118 (60-); Glucose, Blood 75 mg/dL (70-99); Potassium, Blood 3.2 mmol/L (3.5-5.5); Sodium, Blood 137 mmol/L (136-145); Total Protein, Blood 6.8 g/dL (6.4-8.2)
[2022-05-18 19:49] LABS: Acetaminophen, Random <2.0 ug/mL (10.0-30.0)
[2022-05-18] MEDS ORDERED: PRENATAL TABLE1 EAC2 PO (19:51)
[2022-05-18 22:18] LABS: Source, Urine Clean Catch
[2022-05-18 22:21] LABS: Blood, Urine Neg (Neg); Glucose Qualitative, Urine Neg (Neg); Ketones, Urine 4+ (Neg); Leukocyte Esterase, Urine 1+ (Neg); Nitrite, Urine Neg (Neg); Protein, Urine 2+ (Neg); Specific Gravity, Urine 1.025 (1.003-1.022); Urobilinogen, Urine 2+ (Normal)
[2022-05-18 22:23] LABS: Appearance, Urine Clear (Clear); Bilirubin, Urine 1+ (Neg); Color, Urine Amber (P-Yellow)
[2022-05-18 22:31] LABS: Amorphous Light (0-Heavy); Bacteria Few /hpf; Mucus Light (0-Heavy); Red Blood Cells, Urine 0-2 /hpf (0-2); Squamous Epithelial Cells Few /hpf (Few); White Blood Cells, Urine 0-2 /hpf (0-5)
[2022-05-18 22:32] LABS: U Amphetamine Screen DETECTED; U Barbituate Screen Not Detected; U Benzodiazapine Screen Not Detected; U Buprenorphine Screen Not Detected; U Cannabinoids Screen Not Detected; U Cocaine Screen Not Detected; U Methadone Screen Not Detected; U Methamphetamine Screen DETECTED; U Opiates Screen Not Detected; U Oxycodone Screen Not Detected; U Phencyclidine Screen Not Detected; U Propoxyphene Screen Not Detected
[2022-05-21 20:22] LABS: Influenza A, PCR NEGATIVE (NEGATIVE); Influenza B, PCR NEGATIVE (NEGATIVE); Resp Syncytial Virus, PCR NEGATIVE (NEGATIVE); SARS-Cov-2 (COVID-19) PCR, MMC NEGATIVE (NEGATIVE)
[2022-06-01 18:08] LABS: BASOPHILS ABSOLUTE AUTO 0.02 K/mm3 (0.00-0.23); BASOPHILS PERCENT AUTO 0 % (0-2); EOSINOPHILS ABSOLUTE AUTO 0.08 K/mm3 (0.00-0.68); EOSINOPHILS PERCENT AUTO 1 % (0-6); Hematocrit 36.7 % (33.0-51.0); IMMATURE GRAN ABSOLUTE AUTO 0.08 K/mm3 (0.00-0.10); IMMATURE GRAN PERCENT AUTO 1 % (0-1); LYMPHOCYTES ABSOLUTE AUTO 1.85 K/mm3 (0.84-5.20); LYMPHOCYTES PERCENT AUTO 18 % (21-46); MONOCYTES ABSOLUTE AUTO 0.58 K/mm3 (0.16-1.47); MONOCYTES PERCENT AUTO 6 % (4-13); Mean Corpuscular HGB Conc 32.7 g/dL (31.5-36.5); Mean Corpuscular Volume 86 fL (80-100); NEUTROPHILS ABSOLUTE AUTO 7.67 K/mm3 (1.96-9.15); NEUTROPHILS PERCENT AUTO 75 % (41-73); Platelet Count 144 K/mm3 (150-400); RDW Coefficient Variation 13.9 % (11.7-14.2); RDW Standard Deviation 42.7 fL (35.1-46.3); Red Blood Cell Count 4.29 M/mm3 (3.80-5.20); White Blood Cell Count 10.28 K/mm3 (4.00-11.30)
[2022-06-01 18:12] LABS: Mean Platelet Volume 14.1 fL (9.1-12.4)
[2022-06-01 19:07] LABS: Albumin, Blood 2.8 g/dL (3.4-5.0); Albumin/Globulin Ratio 0.7 (0.8-1.8); Bilirubin, Total 0.3 mg/dL (0.1-1.0); Bun/Creatinine Ratio 20.3 (12.0-20.0); Calcium, Blood 9.2 mg/dL (8.5-10.1); Creatinine, Blood 0.79 mg/dL (0.40-1.00); Total Protein, Blood 6.8 g/dL (6.4-8.2)
[2022-06-04] MEDS ORDERED: DOCU100 PO (09:45)
== END 2022-06-04 10:06 | disposition home or self-care (01) ==
LOC: ER 15:13 → EOR 15:14
PROVIDERS: Family Medicine; ADMIT Student in an Organized Health Care Education/Training Program
DX: O99.343 Other mental disorders complicating pregnancy, third trimester (principal); F20.9 Schizophrenia, unspecified; Z3A.34 34 weeks gestation of pregnancy; O99.323 Drug use complicating pregnancy, third trimester; F19.10 Other psychoactive substance abuse, uncomplicated; O99.333 Smoking (tobacco) complicating pregnancy, third trimester; F17.210 Nicotine dependence, cigarettes, uncomplicated; Z20.822 Contact with and (suspected) exposure to COVID-19
CPT/HCPCS: 0241U; 36415; 59025; 70450; 76815; 80053; 81001; 81025; 85025; 87081; 87150; 93005; 93010; 99285-25; A9270; G0378; G0480; Q3014

== ENCOUNTER → 2022-06-11 | Outpatient (CLI) | payer OTHER ==
[~2022-06-11] MED LIST changes: +ABILIFY MYCITE10 M2 PO; +DOCU100 PO; +PRENATAL TABLE1 EAC2 PO; +SEROQUEL25 MG
[2022-06-13 18:07] LABS: CHLAMYDIA TRACHOMATIS, NAA Negative (Negative)
== END | disposition home or self-care (01) ==
LOC: LAB 13:46 → LAB SHORT 13:46
PROVIDERS: Family Medicine
DX: Z34.93 Encounter for supervision of normal pregnancy, unspecified, third trimester (principal)
CPT/HCPCS: 87491; 87591

== ENCOUNTER 2022-06-12 21:09 | Inpatient (IN) | payer OTHER ==
[~2022-06-12] VITALS: Ht 167.6 cm; Wt 77.6 kg
[~2022-06-12 21:09] MED LIST changes: -ABILIFY MYCITE10 M2 PO; -SEROQUEL25 MG
[2022-06-13 01:47] LABS: Influenza A, PCR NEGATIVE (NEGATIVE); Influenza B, PCR NEGATIVE (NEGATIVE); Resp Syncytial Virus, PCR NEGATIVE (NEGATIVE); SARS-Cov-2 (COVID-19) PCR, MMC NEGATIVE (NEGATIVE)
[2022-06-13] MEDS ORDERED: ABILIFY MYCITE10 M2 PO (05:28)
[2022-06-13] MEDS ORDERED: SEROQUEL25 MG PO (05:28)
[2022-06-14 09:28] LABS: Source, Urine Clean Catch
[2022-06-14 09:32] LABS: Bilirubin, Urine Neg (Neg); Blood, Urine Neg (Neg); Glucose Qualitative, Urine Neg (Neg); Ketones, Urine Neg (Neg); Leukocyte Esterase, Urine Neg (Neg); Nitrite, Urine Neg (Neg); Protein, Urine Neg (Neg); Urobilinogen, Urine NORM (Normal); pH, Urine 6.5 (5.0-8.0)
[2022-06-14 09:34] LABS: Appearance, Urine Clear (Clear); Color, Urine Yellow (P-Yellow)
[2022-06-17 12:31] LABS: Albumin/Globulin Ratio 0.7 (0.8-1.8); Bilirubin, Total 0.5 mg/dL (0.1-1.0); Bun/Creatinine Ratio 18.7 (12.0-20.0); Calcium, Blood 9.4 mg/dL (8.5-10.1); Creatinine, Blood 0.8 mg/dL (0.40-1.00); Globulin, Blood 4.3 g/dL (2.2-4.0); Potassium, Blood 4.2 mmol/L (3.5-5.5); Total Protein, Blood 7.3 g/dL (6.4-8.2)
[2022-06-20] MEDS ORDERED: QUET100 PO (09:19)
[2022-06-20 11:01] LABS: BASOPHILS ABSOLUTE AUTO 0.03 K/mm3 (0.00-0.23); BASOPHILS PERCENT AUTO 0 % (0-2); EOSINOPHILS ABSOLUTE AUTO 0.11 K/mm3 (0.00-0.68); EOSINOPHILS PERCENT AUTO 1 % (0-6); Hematocrit 36.7 % (33.0-51.0); IMMATURE GRAN ABSOLUTE AUTO 0.05 K/mm3 (0.00-0.10); IMMATURE GRAN PERCENT AUTO 1 % (0-1); LYMPHOCYTES ABSOLUTE AUTO 1.53 K/mm3 (0.84-5.20); LYMPHOCYTES PERCENT AUTO 16 % (21-46); MONOCYTES ABSOLUTE AUTO 0.69 K/mm3 (0.16-1.47); MONOCYTES PERCENT AUTO 7 % (4-13); Mean Corpuscular HGB 27.7 pg (26.0-34.0); Mean Corpuscular HGB Conc 32.7 g/dL (31.5-36.5); Mean Corpuscular Volume 85 fL (80-100); NEUTROPHILS ABSOLUTE AUTO 6.95 K/mm3 (1.96-9.15); NEUTROPHILS PERCENT AUTO 74 % (41-73); Platelet Count 147 K/mm3 (150-400); RDW Coefficient Variation 14.6 % (11.7-14.2); RDW Standard Deviation 45.1 fL (35.1-46.3); Red Blood Cell Count 4.33 M/mm3 (3.80-5.20); White Blood Cell Count 9.36 K/mm3 (4.00-11.30)
[2022-06-20 11:13] LABS: Mean Platelet Volume 13.6 fL (9.1-12.4)
--- NOTE | 2022-06-21 07:40 | NUR ---
PT REPORTS PAIN 05/02. PT REPORTS SHE IS TOLERATING PAIN AT THIS TIME. DOESN'T DESIRE ANYTHING MORE. TORDOL DUE IN 1 HOUR. PT STATES SHE IS FINE WAITING. SHE SAYS SHE CAN REST WITH THE PAIN NOW. PT REQUESTED PHONE TO MAKE CONTACT WITH HER MOM TO CONFIRM ADDRESS OF RESIDENCE TO FILL OUT CERTIFICATE. ALSO DISCUSSED BABY AND COURT HEARING TODAY.
[2022-06-21 12:45] LABS: Hematocrit 35.7 % (33.0-51.0); Hemoglobin 11.5 g/dL (11.5-16.0); Mean Corpuscular HGB 27.4 pg (26.0-34.0); Mean Corpuscular HGB Conc 32.2 g/dL (31.5-36.5); Mean Corpuscular Volume 85 fL (80-100); Platelet Count 134 K/mm3 (150-400); RDW Coefficient Variation 14.8 % (11.7-14.2); RDW Standard Deviation 45.8 fL (35.1-46.3); White Blood Cell Count 13.13 K/mm3 (4.00-11.30)
--- NOTE | 2022-06-21 14:34 | NUR ---
PT ON PHONE FROM 1:30- ABOUT 2:[address] HEARING. CSP NOW HERE AND IN ROOM WITH PT.
--- NOTE | 2022-06-21 14:39 | NUR ---
SECURITY CALLED AND VISITORS HELD WHILE CPS HERE TO TALK WITH PT. PT AWARE THAT VISITORS ARE BEING HELD AT THIS TIME. PT AGREES THAT IS A GOOD IDEA SHE STATES "I CAN'T CONTROL WHAT OTHER PEOPLE WILL SAY".
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
--- NOTE | 2022-06-22 07:28 | NUR ---
NPT UP AMBULATING IN ROOM. DOING MORNING CARE. PLANNING TO TAKE A SHOWER. PATIENT ALERT AND ORIENTED. CUCO SELF AND NB CARE WELL. PT ASKING QUESTIONS ABOUT D/C. D/C INSTRUCTIONS BROUGHT IN FOR PATIENT TO NOT REVIEWING. PT ASKS MORE QUESTIONS ABOUT D/C. PT INFORMED THESE ARE JUST D/C INSTRUCTIONS FOR HER TO BE READING THROUGH FOR HER CARE NOW AND WHEN SHE GOES HOME. PT STATES SHE WILL READ THROUGH AFTER HER SHOWER. PT REQUESTS I GET SAJAN FROM [facility] TO ASK HER WHAT SHE KNOWS ABOUT HER D/C AND CPS PLANS. PT WANTS TO CHECK HER PHONE MESSAGES AFTER HER SHOWER. OFFERED IT AT THIS TIME BUT DECLINES. SITABURTO IN THE ROOM WITH PT.
--- NOTE | 2022-06-22 07:40 | NUR ---
PT KEEPS ASKING ME TO CALL SETH FROM [facility] TO ASK HER TO COME SEE HER THIS MORNING. DISCUSSED WITH MELINDA THE TIME OF DAY AND ASKED IF I COUDL WAIT UNTIL 0830 TO CALL HER TO BE RESPECTFUL OF HER SLEEP AND HER DAY. MELINDA CONSENTS TO THAT.
--- NOTE | 2022-06-22 08:45 | NUR ---
CONTACT MADE WITH SETH PER PT'S REQUEST. SETH IN HOUSE AND WILL BE DOWN TO SEE PT SOON.
--- NOTE | 2022-06-22 10:05 | NUR ---
0920: LAUREN FROM CPS CALLED AND THEY PLAN TO COME AT 1200. PLAN IS TO REMOVE BABY FROM MOM. DR. AVALOS UPDATED. DR. AVALOS PLANS TO BE BACK AT 1200 TO BE HERE FOR MELINDA WHEN CPS COMES.
--- NOTE | 2022-06-22 11:01 | NUR ---
DR. AVALOS CALLED IN TO SAY SHE WOULD NOT BE AVAILABLE TO BE PRESENT AT 1200 BUT WOULD BE OVER EVELIO. NO PPFU AT THE [facility] IS NECESSARY. PT WILL BE OFFERED APPOINTMENTS 06/25 @ 1130 AND @ 4:[address] AVALOS'S OFFICE. D/C INSTRUCTIONS SIGNED BY PT. PT REPORTS HAVING NO QUESTIONS ABOUT SELF CARE. DR. AVALOS HAD DONE A VERY THOROUGH JOB ON D/C TEACHING WHEN SHE HAD BEEN IN TO TALK TO PT EARLIER IN THE MORNING.
[2022-06-22] MEDS ORDERED: ABILIFY MYCITE5 M2 PO (11:05)
--- NOTE | 2022-06-22 11:59 | NUR ---
PT RESTING COMFORTABLY. DENIES PAIN. PEDS HERE TO SEE NB. PT ASKS APPROPRIATE QUESTIONS.
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
--- NOTE | 2022-06-22 12:30 | NUR ---
AFTER TALKING WITH PEDS AND LEARNING THAT NB WILL NOT D/C TODAY, PT IS ASKING WHEN SHE CAN GO HOME. SHE IS AWARE THAT NB WILL STAY AT THE HOSPITAL. PT REQUESTS A TAXI CAB. TAXI CAB IS BEING PROVIDED.
--- NOTE | 2022-06-22 12:48 | NUR ---
REVIEWED D/C INSTRUCTIONS WITH PATIENT INCLUDING APPOINTMENTS AND SCRIPTS PROVIDED FOR HER ABILIFY AND SEROQUEL INADDITION TO DR. AVALOS FAXED THEM OVER TO [facility]. PT REQUESTED TO SEE NB ONE MORE TIME PRIOR TO DO. PT ESCORTED TO NURSERY. THEN ESCORTED TO FRONT OF HOSPITAL AND SEEN OFF IN A TAXI CAB. LAUREN AT [facility] UPDATED AND INFORMED PT HAS BEEN D/C.
--- NOTE | 2022-06-22 12:53 | NUR ---
PT PLACED IN A TAXI AT 1252, ON THE PHONE WITH HER MOM. PT STATES SHE WILL BE BACK TOMORROW TO BUSINESS DEVELOPMENT MANAGER THE BABY.
== END 2022-06-22 12:50 | disposition home or self-care (01) | DRG 832 ==
LOC: ER 21:09 → EOR 21:10 → BC 06-20 08:31 → ER 06-20 08:31 → EDBEDREQ 06-20 08:33 → EDBEDREQDT 06-20 08:33 → EDBEDREQSVC 06-20 08:33 → EDBEDREQTM 06-20 08:33 → BC 06-20 09:02
PROVIDERS: Emergency Medicine; Family Medicine; ADMIT Family Medicine
DX: O99.343 Other mental disorders complicating pregnancy, third trimester (principal); O99.323 Drug use complicating pregnancy, third trimester; F15.10 Other stimulant abuse, uncomplicated; F20.9 Schizophrenia, unspecified; Z20.822 Contact with and (suspected) exposure to COVID-19; Z3A.38 38 weeks gestation of pregnancy; Z67.40 Type O blood, Rh positive
CPT/HCPCS: 0241U; 36415; 80053; 81003; 85025; 85027; 86850; 86900; 86901; 99284; A9270; G0378; J1885; J2270; J2550; J2590; J3010; J7120

== ENCOUNTER 2023-02-27 20:57 | Emergency (ER) | payer OTHER ==
[~2023-02-27] VITALS: Ht 167.6 cm; Wt 63.5 kg
[~2023-02-27 20:57] MED LIST changes: +ABILIFY MYCITE10 M2 PO; +ABILIFY MYCITE5 M2 PO; +Naprosyn500 MG PO; +SEROQUEL25 MG PO
[2023-02-27 21:47] VITALS: BP 105/70
[2023-02-27] MEDS ORDERED: CEPH500 PO (21:55)
== END 2023-02-27 22:27 | disposition home or self-care (01) ==
LOC: ER 20:57
DX: L03.115 Cellulitis of right lower limb (principal); F17.210 Nicotine dependence, cigarettes, uncomplicated
CPT/HCPCS: 99282; A9270

== ENCOUNTER 2023-12-09 01:22 | Inpatient (IN) | payer OTHER ==
[~2023-12-09] VITALS: Ht 167.6 cm; Wt 74.8 kg
[2023-12-09 02:21] LABS: Albumin, Blood 2.3 g/dL (3.4-5.0); Albumin/Globulin Ratio 0.4 (0.8-1.8); Bilirubin, Total 0.5 mg/dL (0.1-1.0); Bun/Creatinine Ratio 15.8 (12.0-20.0); Calcium, Blood 9.9 mg/dL (8.5-10.1); Creatinine, Blood 0.95 mg/dL (0.40-1.00); Globulin, Blood 5.5 g/dL (2.2-4.0); Potassium, Blood 3.7 mmol/L (3.5-5.5); Total Protein, Blood 7.8 g/dL (6.4-8.2)
[2023-12-09] MEDS ORDERED: Ondansetron HCl 2 MG / ML 2ML Vial IV ONE (02:25)
[2023-12-09] MEDS ORDERED: NS 1,000 ML IV SCH ×2 (02:25→04:35)
[2023-12-09 02:43] LABS: BASOPHILS ABSOLUTE AUTO 0.04 K/mm3 (0.00-0.23); BASOPHILS PERCENT AUTO 0 % (0-2); EOSINOPHILS PERCENT AUTO 0 % (0-6); Hematocrit 38.2 % (33.0-51.0); Hemoglobin 12.4 g/dL (11.5-16.0); IMMATURE GRAN ABSOLUTE AUTO 0.12 K/mm3 (0.00-0.10); IMMATURE GRAN PERCENT AUTO 1 % (0-1); LYMPHOCYTES ABSOLUTE AUTO 1.27 K/mm3 (0.84-5.20); LYMPHOCYTES PERCENT AUTO 8 % (21-46); MONOCYTES PERCENT AUTO 4 % (4-13); Mean Corpuscular HGB 26.7 pg (26.0-34.0); Mean Corpuscular HGB Conc 32.5 g/dL (31.5-36.5); Mean Corpuscular Volume 82 fL (80-100); Mean Platelet Volume 11.3 fL (9.1-12.4); NEUTROPHILS ABSOLUTE AUTO 13.85 K/mm3 (1.96-9.15); NEUTROPHILS PERCENT AUTO 87 % (41-73); Platelet Count 298 K/mm3 (150-400); RDW Coefficient Variation 13.2 % (11.7-14.2); RDW Standard Deviation 39.6 fL (35.1-46.3); Red Blood Cell Count 4.65 M/mm3 (3.80-5.20); White Blood Cell Count 15.88 K/mm3 (4.00-11.30)
[2023-12-09] MEDS ORDERED: FentaNYL Citrate 50 MCG/ML 2 ML Injection IV ONE ×2 (03:00→04:25)
[2023-12-09] MEDS ORDERED: Metoclopramide HCl 5MG / ML 2ML Vial IV ONE (03:05)
[2023-12-09 06:59] LABS: Source, Urine Clean Catch
[2023-12-09 07:04] LABS: Appearance, Urine Cloudy (Clear); Bilirubin, Urine Neg (Neg); Blood, Urine 3+ (Neg); Color, Urine Yellow (P-Yellow); Glucose Qualitative, Urine Neg (Neg); Ketones, Urine 2+ (Neg); Leukocyte Esterase, Urine 3+ (Neg); Nitrite, Urine Pos (Neg); Protein, Urine 2+ (Neg); Specific Gravity, Urine 1.015 (1.003-1.022); Urobilinogen, Urine NORM (Normal)
[2023-12-09 07:12] LABS: Bacteria Many /hpf; Squamous Epithelial Cells Rare /hpf (Few); White Blood Cells, Urine 50-100 /hpf (0-5)
[2023-12-09] MEDS ORDERED: CefTRIAXone Sodium 1,000 MG in NS 50 ML IV ONE (07:50)
[2023-12-09 10:00] VITALS: BP 140/86
--- NOTE | 2023-12-09 11:24 | NUR ---
SPOKE WITH MAILROOM ASSOCIATE DANICA WAITE. ORDERS GIVEN FOR TYLENOL 1000 MG NOW. AND ZOFRAN 8 MG Q8HRS IV. REGLAN 10MG Q8 HRS IV NEEDED. PATIENT 23 HR OBSERVATION. RN WILL CONTINUE TO REACH OUT TO DR. HUERTA FOR FURTHER ORDERS.
[2023-12-09] MEDS ORDERED: Ondansetron HCl 2 MG / ML 2ML Vial IV PRN ×2 (11:30→12:40)
[2023-12-09] MEDS ORDERED: Metoclopramide HCl 5MG / ML 2ML Vial IV PRN (11:30)
[2023-12-09] MEDS ORDERED: Acetaminophen 500 MG Tab PO PRN ×2 (11:30→12:40)
[2023-12-09] MEDS ORDERED: FentaNYL Citrate 50 MCG/ML 2 ML Injection IV PRN (12:40)
[2023-12-09] MEDS ORDERED: Calcium Carbonate 500 MG Tab Chew PO PRN (12:40)
[2023-12-09] MEDS ORDERED: Docusate Sodium 100 MG Cap PO PRN (12:40)
[2023-12-09] MEDS ORDERED: Lactated Ringer's 1,000 ML IV SCH ×2 (12:40→14:30)
[2023-12-09 13:53] VITALS: BP 144/89
[2023-12-09 14:32] VITALS: BP 139/89
[2023-12-09 17:37] VITALS: BP 137/88
[2023-12-09 18:44] LABS: U Amphetamine Screen DETECTED; U Barbituate Screen Not Detected; U Benzodiazapine Screen Not Detected; U Buprenorphine Screen Not Detected; U Cannabinoids Screen Not Detected; U Cocaine Screen Not Detected; U Methadone Screen Not Detected; U Methamphetamine Screen DETECTED; U Opiates Screen Not Detected; U Oxycodone Screen Not Detected; U Phencyclidine Screen Not Detected
--- NOTE | 2023-12-09 19:45 | NUR ---
REPORT RECEIVED FROM SUN KHAN. ASSUMED CARE OF PT AT 1900. PT IS FOUND SITTING UPRIGHT ON THE SIDE OF HER BED, IN NAD, VISITING WITH HER BOYFRIEND. SHE INQUIRES ABOUT VISITING HOURS AND TAKING A SHOWER. WILL SUPPLY FRESH LINENS FOR SHOWER. NO OTHER NEEDS IDENTIFIED AT THIS TIME.
[2023-12-09 19:51] VITALS: BP 139/91
[2023-12-09 23:43] VITALS: BP 140/90
[2023-12-10 03:54] VITALS: BP 132/73
[2023-12-10 05:12] LABS: BASOPHILS ABSOLUTE AUTO 0.03 K/mm3 (0.00-0.23); BASOPHILS PERCENT AUTO 0 % (0-2); EOSINOPHILS ABSOLUTE AUTO 0.03 K/mm3 (0.00-0.68); EOSINOPHILS PERCENT AUTO 0 % (0-6); Hematocrit 31.7 % (33.0-51.0); Hemoglobin 10.7 g/dL (11.5-16.0); IMMATURE GRAN ABSOLUTE AUTO 0.09 K/mm3 (0.00-0.10); IMMATURE GRAN PERCENT AUTO 1 % (0-1); LYMPHOCYTES ABSOLUTE AUTO 1.08 K/mm3 (0.84-5.20); LYMPHOCYTES PERCENT AUTO 10 % (21-46); MONOCYTES ABSOLUTE AUTO 0.62 K/mm3 (0.16-1.47); MONOCYTES PERCENT AUTO 6 % (4-13); Mean Corpuscular HGB 27.8 pg (26.0-34.0); Mean Corpuscular HGB Conc 33.8 g/dL (31.5-36.5); Mean Corpuscular Volume 82 fL (80-100); Mean Platelet Volume 11.3 fL (9.1-12.4); NEUTROPHILS ABSOLUTE AUTO 8.75 K/mm3 (1.96-9.15); NEUTROPHILS PERCENT AUTO 83 % (41-73); Platelet Count 191 K/mm3 (150-400); RDW Coefficient Variation 13.3 % (11.7-14.2); RDW Standard Deviation 39.8 fL (35.1-46.3); Red Blood Cell Count 3.85 M/mm3 (3.80-5.20)
[2023-12-10 08:02] VITALS: BP 121/77
[2023-12-10] MEDS ORDERED: Prenatal Vit/FE Fumarate/FA 1 Tab PO SCH (09:00)
[2023-12-10] MEDS ORDERED: CefTRIAXone Sodium 1,000 MG in NS 50 ML IV SCH (09:00)
[2023-12-10 11:38] VITALS: BP 126/79
[2023-12-10] MEDS ORDERED: OxyCODONE HCL 5 MG TAB PO PRN (15:10)
[2023-12-10 15:15] VITALS: BP 124/78
[2023-12-10 15:51] LABS: Albumin, Blood 1.8 g/dL (3.4-5.0); Albumin/Globulin Ratio 0.4 (0.8-1.8); Bilirubin, Total 0.5 mg/dL (0.1-1.0); Calcium, Blood 8.2 mg/dL (8.5-10.1); Globulin, Blood 4.4 g/dL (2.2-4.0); Total Protein, Blood 6.2 g/dL (6.4-8.2)
--- NOTE | 2023-12-10 19:30 | NUR ---
[facility] KRISTOPHER CALLED AND SPOKE WITH DR. HUERTA TO GIVEN RESULTS OF COMPLETE OB US
[2023-12-10 19:31] VITALS: BP 131/78
[2023-12-10] MEDS ORDERED: FentaNYL Citrate 50 MCG/ML 2 ML Injection IV PRN (20:35)
[2023-12-10] MEDS ORDERED: QUEtiapine Fumarate 100 MG Tab PO SCH (21:00)
[2023-12-10 22:11] LABS: Creatinine, Urine Random 82.2 mg/dL (27.00-270.00); Protein, Urine Random 32.8 mg/dL (0.0-11.9); Protein/Creat Ratio, Ur Random 0.4
[2023-12-11 01:27] VITALS: BP 119/79
[2023-12-11 05:34] VITALS: BP 125/85
[2023-12-11 07:22] VITALS: BP 132/82
[2023-12-11 09:05] LABS: HEPATITIS B SURFACE ANTIBODY 17.69 IU/L
[2023-12-11 09:09] LABS: HEPATITIS B SURFACE ANTIGEN Negative (Negative)
[2023-12-11 13:14] VITALS: BP 113/68
[2023-12-11 13:50] LABS: BASOPHILS ABSOLUTE AUTO 0.02 K/mm3 (0.00-0.23); BASOPHILS PERCENT AUTO 0 % (0-2); EOSINOPHILS ABSOLUTE AUTO 0.08 K/mm3 (0.00-0.68); EOSINOPHILS PERCENT AUTO 1 % (0-6); Hematocrit 29.4 % (33.0-51.0); Hemoglobin 9.3 g/dL (11.5-16.0); IMMATURE GRAN ABSOLUTE AUTO 0.07 K/mm3 (0.00-0.10); IMMATURE GRAN PERCENT AUTO 1 % (0-1); LYMPHOCYTES PERCENT AUTO 20 % (21-46); MONOCYTES ABSOLUTE AUTO 0.52 K/mm3 (0.16-1.47); MONOCYTES PERCENT AUTO 8 % (4-13); Mean Corpuscular HGB 26.8 pg (26.0-34.0); Mean Corpuscular HGB Conc 31.6 g/dL (31.5-36.5); Mean Corpuscular Volume 85 fL (80-100); Mean Platelet Volume 11.6 fL (9.1-12.4); NEUTROPHILS ABSOLUTE AUTO 4.82 K/mm3 (1.96-9.15); NEUTROPHILS PERCENT AUTO 70 % (41-73); Platelet Count 155 K/mm3 (150-400); RDW Coefficient Variation 13.4 % (11.7-14.2); RDW Standard Deviation 41.6 fL (35.1-46.3); Red Blood Cell Count 3.47 M/mm3 (3.80-5.20); White Blood Cell Count 6.91 K/mm3 (4.00-11.30)
[2023-12-11] MEDS ORDERED: Polyethylene Glycol 3350 17 gm PO SCH (14:00)
[2023-12-11] MEDS ORDERED: Magnesium Hydroxide Conc 10 ML UDC PO SCH (14:00)
[2023-12-11 14:08] LABS: Albumin, Blood 1.6 g/dL (3.4-5.0); Albumin/Globulin Ratio 0.4 (0.8-1.8); Bilirubin, Total 0.3 mg/dL (0.1-1.0); Bun/Creatinine Ratio 7.1 (12.0-20.0); Calcium, Blood 8.3 mg/dL (8.5-10.1); Creatinine, Blood 0.99 mg/dL (0.40-1.00); Globulin, Blood 3.9 g/dL (2.2-4.0); Potassium, Blood 4.2 mmol/L (3.5-5.5); Total Protein, Blood 5.5 g/dL (6.4-8.2)
[2023-12-11 14:59] VITALS: BP 138/96
--- NOTE | 2023-12-11 15:03 | NUR ---
DR AVALOS AT BEDSIDE TALKING WITH PT
[2023-12-11 16:26] LABS: HIV 1,2 COMBO ANTIGEN/ANTIBODY Negative (Negative)
[2023-12-11 20:10] VITALS: BP 142/90
[2023-12-11] MEDS ORDERED: Cefpodoxime Proxetil 200 MG Tab PO SCH (21:00)
[2023-12-12 00:38] VITALS: BP 139/82
--- NOTE | 2023-12-12 01:21 | NUR ---
PAIN MED REQUEST: PT HAD REQUESTED PAIN MEDS PRIOR TO AVAILABILITY. PT VERBILIZED UNDERSTANDING AND PLAN TO HAVE RN RETURN WITH PAIN MEDS WHEN ABLE. THIS RN ENTERED ROOM AND PT SLEEPING LEFT LATERAL WITH REGULAR RESPIRATIONS. PT LEFT UNDISTURBED.
[2023-12-12] MEDS ORDERED: Cefpodoxime Proxetil 200 MG Tab PO SCH (08:00)
--- NOTE | 2023-12-12 08:24 | NUR ---
PT SLEEPING. RR EVEN/UNLABORED.
[2023-12-12 09:17] VITALS: BP 125/76
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
[2023-12-12 14:18] VITALS: BP 131/85
--- NOTE | 2023-12-12 16:06 | NUR ---
assumed care, Dr mujica here see new orders
[2023-12-12 16:07] VITALS: BP 130/94
--- NOTE | 2023-12-12 16:08 | NUR ---
b/p elevated up walking in room
[2023-12-12] MEDS ORDERED: Bisacodyl 10 MG Supp PR ONE (16:10)
[2023-12-12] MEDS ORDERED: Magnesium Citrate 300 ML BTL PO ONE (16:10)
[2023-12-12 16:31] VITALS: BP 122/81
[2023-12-12 16:45] LABS: HEPATITIS C AB CIA INTERP Negative (Negative); HEPATITIS C ANTIBODY CIA INDEX 0.03 IV
[2023-12-12 20:32] VITALS: BP 133/87
[2023-12-13 00:58] VITALS: BP 143/88
[2023-12-13 05:08] LABS: BASOPHILS ABSOLUTE AUTO 0.03 K/mm3 (0.00-0.23); BASOPHILS PERCENT AUTO 0 % (0-2); EOSINOPHILS ABSOLUTE AUTO 0.09 K/mm3 (0.00-0.68); EOSINOPHILS PERCENT AUTO 1 % (0-6); Hematocrit 31.3 % (33.0-51.0); Hemoglobin 10.2 g/dL (11.5-16.0); IMMATURE GRAN ABSOLUTE AUTO 0.09 K/mm3 (0.00-0.10); IMMATURE GRAN PERCENT AUTO 1 % (0-1); LYMPHOCYTES PERCENT AUTO 21 % (21-46); MONOCYTES ABSOLUTE AUTO 0.45 K/mm3 (0.16-1.47); MONOCYTES PERCENT AUTO 6 % (4-13); Mean Corpuscular HGB 27.1 pg (26.0-34.0); Mean Corpuscular HGB Conc 32.6 g/dL (31.5-36.5); Mean Corpuscular Volume 83 fL (80-100); Mean Platelet Volume 11.5 fL (9.1-12.4); NEUTROPHILS ABSOLUTE AUTO 5.02 K/mm3 (1.96-9.15); NEUTROPHILS PERCENT AUTO 70 % (41-73); Platelet Count 168 K/mm3 (150-400); RDW Coefficient Variation 13.2 % (11.7-14.2); RDW Standard Deviation 39.4 fL (35.1-46.3); Red Blood Cell Count 3.76 M/mm3 (3.80-5.20); White Blood Cell Count 7.18 K/mm3 (4.00-11.30)
[2023-12-13 05:32] LABS: Albumin, Blood 1.6 g/dL (3.4-5.0); Albumin/Globulin Ratio 0.4 (0.8-1.8); Bilirubin, Total 0.2 mg/dL (0.1-1.0); Bun/Creatinine Ratio 8.8 (12.0-20.0); Calcium, Blood 8.3 mg/dL (8.5-10.1); Creatinine, Blood 0.91 mg/dL (0.40-1.00); Globulin, Blood 4.1 g/dL (2.2-4.0); Potassium, Blood 4.1 mmol/L (3.5-5.5); Total Protein, Blood 5.7 g/dL (6.4-8.2)
--- NOTE | 2023-12-13 06:28 | NUR ---
pt sitting in chair, no needs at this time.
[2023-12-13 08:13] VITALS: BP 131/86
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
--- NOTE | 2023-12-13 08:46 | NUR ---
PATIENT IS REFUSING SOCIAL SERVICE CONSULT, SHE STATES SHE IS FINE AND GOING BACK TO LIVE IN HER HOUSE SHE HAS HAD FOR 2 YEARS, RNST DONE ON BABY, DR HUERTA WILL COME SEE HER THIS AFTERNOON AND PLAN FOR DISCHARGE
[2023-12-13 11:23] VITALS: BP 126/75
[2023-12-13 14:00] VITALS: BP 125/87
--- NOTE | 2023-12-13 14:06 | NUR ---
OLER HERE TO SEE PATIENT VERBAL D/C HOME,
[2023-12-14 09:50] LABS: APTIMA MEDIA TYPE Unisex Swab; C. TRACHOMATIS BY TMA Positive (Negative); N. GONORRHOEAE BY TMA Negative (Negative); SPECIMEN SOURCE Vaginal
== END 2023-12-13 14:04 | disposition home or self-care (01) | DRG 832 ==
LOC: ER 01:22 → BC 01:23 → ER 07:57 → BC 09:49
PROVIDERS: Emergency Medicine; ADMIT Obstetrics & Gynecology
PROC: BY4FZZZ Ultrasonography of Third Trimester, Single Fetus (ICD-10-PCS; principal; 2023-12-09)
DX: O23.03 Infections of kidney in pregnancy, third trimester (principal); N13.6 Pyonephrosis; O99.323 Drug use complicating pregnancy, third trimester; B96.20 Unspecified Escherichia coli [E. coli] as the cause of diseases classified elsewhere; K80.20 Calculus of gallbladder without cholecystitis without obstruction; O99.613 Diseases of the digestive system complicating pregnancy, third trimester; K59.00 Constipation, unspecified; O09.73 Supervision of high risk pregnancy due to social problems, third trimester; O13.3 Gestational [pregnancy-induced] hypertension without significant proteinuria, third trimester; K76.0 Fatty (change of) liver, not elsewhere classified; F32.A Depression, unspecified; F43.10 Post-traumatic stress disorder, unspecified; F20.9 Schizophrenia, unspecified; O99.343 Other mental disorders complicating pregnancy, third trimester; F15.10 Other stimulant abuse, uncomplicated; O99.283 Endocrine, nutritional and metabolic diseases complicating pregnancy, third trimester; E86.0 Dehydration; O99.333 Smoking (tobacco) complicating pregnancy, third trimester; F17.200 Nicotine dependence, unspecified, uncomplicated; Z91.410 Personal history of adult physical and sexual abuse; Z3A.29 29 weeks gestation of pregnancy
CPT/HCPCS: 36415; 59025; 74177; 76700; 76705; 76805; 76815; 76857; 80053; 81001; 82570; 84156; 84703; 85025; 86592; 86762; 86803; 86850; 86900; 86901; 87077; 87081; 87086; 87150; 87186; 87340; 87389; 87491; 87591; 96361; 96374-59; 96375; 96376; 99285-25; A9270; G0378; J0696; J2405; J2765; J3010; J7030; J7120; Q9967

== ENCOUNTER 2024-04-26 14:07 | Emergency (ER) | payer OTHER ==
[~2024-04-26] VITALS: Ht 167.6 cm; Wt 63.5 kg
[~2024-04-26 14:07] MED LIST changes: +PENVK500 PO
[2024-04-26 14:29] VITALS: BP 112/77
== END 2024-04-26 15:04 | disposition home or self-care (01) ==
LOC: ER 14:07
DX: S90.822A Blister (nonthermal), left foot, initial encounter (principal); S90.821A Blister (nonthermal), right foot, initial encounter; X58.XXXA Exposure to other specified factors, initial encounter; F17.210 Nicotine dependence, cigarettes, uncomplicated
CPT/HCPCS: 99283

== ENCOUNTER 2024-04-26 16:40 | Emergency (ER) | payer OTHER ==
[~2024-04-26] VITALS: Ht 167.6 cm; Wt 63.5 kg
[2024-04-26 17:00] VITALS: BP 107/82
== END 2024-04-26 18:00 | disposition left against medical advice (07) ==
LOC: ER 16:40
DX: R45.851 Suicidal ideations (principal); M54.2 Cervicalgia; M54.50 Low back pain, unspecified; G89.29 Other chronic pain; F17.210 Nicotine dependence, cigarettes, uncomplicated
CPT/HCPCS: 99282

== ENCOUNTER 2024-07-24 07:39 | Emergency (ER) | payer OTHER ==
[~2024-07-24] VITALS: Ht 167.6 cm; Wt 63.5 kg
[~2024-07-24 07:39] MED LIST changes: +AMOX875 PO; +ARIPIPRAZOLE OD15 MG; +DOXY100 PO
[2024-07-24 07:51] VITALS: BP 117/84
[2024-07-25] MEDS ORDERED: CEPH500 PO (22:40)
== END 2024-07-24 10:07 | disposition home or self-care (01) ==
LOC: ER 07:39
DX: T14.8XXA Other injury of unspecified body region, initial encounter (principal); F17.210 Nicotine dependence, cigarettes, uncomplicated; Y04.8XXA Assault by other bodily force, initial encounter; Z79.899 Other long term (current) drug therapy
CPT/HCPCS: 99284

== ENCOUNTER 2024-07-25 10:31 | Observation (INO) | payer OTHER ==
[~2024-07-25] VITALS: Ht 170.2 cm; Wt 59.0 kg
[2024-07-25 10:52] VITALS: BP 110/68
[2024-07-25] MEDS ORDERED: OLANZapine ODT 5 MG Tab MM ONE (11:15)
[2024-07-25 11:49] LABS: BASOPHILS ABSOLUTE AUTO 0.04 K/mm3 (0.00-0.23); BASOPHILS PERCENT AUTO 1 % (0-2); EOSINOPHILS ABSOLUTE AUTO 0.18 K/mm3 (0.00-0.68); EOSINOPHILS PERCENT AUTO 2 % (0-6); Hematocrit 45.2 % (33.0-51.0); Hemoglobin 14.6 g/dL (11.5-16.0); IMMATURE GRAN ABSOLUTE AUTO 0.02 K/mm3 (0.00-0.10); IMMATURE GRAN PERCENT AUTO 0 % (0-1); LYMPHOCYTES PERCENT AUTO 26 % (21-46); MONOCYTES ABSOLUTE AUTO 0.47 K/mm3 (0.16-1.47); MONOCYTES PERCENT AUTO 6 % (4-13); Mean Corpuscular HGB Conc 32.3 g/dL (31.5-36.5); Mean Corpuscular Volume 87 fL (80-100); Mean Platelet Volume 12.1 fL (9.1-12.4); NEUTROPHILS PERCENT AUTO 65 % (41-73); Platelet Count 210 K/mm3 (150-400); RDW Coefficient Variation 14.6 % (11.7-14.2); RDW Standard Deviation 46.6 fL (35.1-46.3); Red Blood Cell Count 5.21 M/mm3 (3.80-5.20); White Blood Cell Count 7.81 K/mm3 (4.00-11.30)
[2024-07-25 12:15] LABS: Ethanol (Alcohol), Blood, Med <3 mg/dL; Salicylate <1.7 mg/dL (2.8-20.0)
[2024-07-25 12:20] LABS: Alanine Aminotransfer (ALT/SGP 28 U/L (12-78); Albumin, Blood 4.3 g/dL (3.4-5.0); Albumin/Globulin Ratio 1.1 (0.8-1.8); Alk Phos 66 U/L (50-136); Anion Gap 12 mmol/L (3-11); Aspartate Aminotrans (AST/SGOT 32 U/L (12-37); Bilirubin, Total 1.4 mg/dL (0.1-1.0); Blood Urea Nitrogen 17 mg/dL (8-24); CO2, Blood 23 mmol/L (21-32); Calcium, Blood 9.1 mg/dL (8.5-10.1); Chloride, Blood 107 mmol/L (98-108); Creatinine, Blood 1.06 mg/dL (0.40-1.00); Globulin, Blood 3.8 g/dL (2.2-4.0); Glomerular Filtration Rate 71 (60-); Glucose, Blood 69 mg/dL (70-99); Sodium, Blood 138 mmol/L (136-145); Total Protein, Blood 8.1 g/dL (6.4-8.2)
[2024-07-25 12:21] LABS: Acetaminophen, Random <2.0 ug/mL (10.0-30.0)
[2024-07-25 14:33] LABS: Influenza A, PCR NEGATIVE (NEGATIVE); Influenza B, PCR NEGATIVE (NEGATIVE); Resp Syncytial Virus, PCR NEGATIVE (NEGATIVE); SARS-Cov-2 (COVID-19) PCR, MMC NEGATIVE (NEGATIVE)
[2024-07-25] MEDS ORDERED: QUEtiapine Fumarate 25 MG Tab PO PRN (14:50)
[2024-07-25] MEDS ORDERED: OLANZapine 10 MG Vial IM PRN (14:50)
[2024-07-25 21:54] LABS: Source, Urine Clean Catch
[2024-07-25 22:08] LABS: Bilirubin, Urine Neg (Neg); Blood, Urine 3+ (Neg); Glucose Qualitative, Urine Neg (Neg); Ketones, Urine Neg (Neg); Leukocyte Esterase, Urine 3+ (Neg); Nitrite, Urine Pos (Neg); Protein, Urine 1+ (Neg); Specific Gravity, Urine 1.025 (1.003-1.022); Urobilinogen, Urine 1+ (Normal)
[2024-07-25 22:19] LABS: U Amphetamine Screen DETECTED; U Barbituate Screen Not Detected; U Benzodiazapine Screen Not Detected; U Buprenorphine Screen Not Detected; U Cannabinoids Screen Not Detected; U Cocaine Screen Not Detected; U Methadone Screen Not Detected; U Methamphetamine Screen DETECTED; U Opiates Screen DETECTED; U Oxycodone Screen Not Detected; U Phencyclidine Screen Not Detected
[2024-07-25 22:21] LABS: Appearance, Urine Hazy (Clear); Color, Urine Yellow (P-Yellow)
[2024-07-25 22:22] LABS: Bacteria Many /hpf; Red Blood Cells, Urine 0-2 /hpf (0-2); Squamous Epithelial Cells Mod /hpf (Few); White Blood Cells, Urine 25-50 /hpf (0-5)
[2024-07-25] MEDS ORDERED: Cephalexin Monohydrate 500 MG Cap PO ONE (22:40)
[2024-07-25] MEDS ORDERED: CEPH500 PO (22:40)
== END 2024-07-25 22:45 | disposition other institution (70) ==
LOC: ER 10:31 → EOR 10:32
PROVIDERS: Physician Assistant; ADMIT Emergency Medicine
DX: F20.9 Schizophrenia, unspecified (principal); F19.10 Other psychoactive substance abuse, uncomplicated; F17.210 Nicotine dependence, cigarettes, uncomplicated; Z79.899 Other long term (current) drug therapy
CPT/HCPCS: 0241U; 80053; 80320; 81001; 81025; 82947; 85025; 87077; 87086; 87186; 99285-25; A9270; G0378; G0480

== ENCOUNTER 2024-07-25 17:40 | Inpatient (IN) | payer OTHER ==
[~2024-07-25] VITALS: Ht 170.2 cm; Wt 130.0 kg
[2024-07-25] MEDS ORDERED: CEPH500 PO (22:40)
[2024-07-26 00:18] VITALS: BP 99/64
[2024-07-26 00:20] VITALS: BP 99/64
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
--- NOTE | 2024-07-26 03:55 | NUR ---
PATIENT CONTINUES TO SLEEPWITHOUT ANY BEHAVIORS OR ISSUES.
[2024-07-26] MEDS ORDERED: LORazepam 2 MG/ML 1ML Injection IM PRN (08:50)
[2024-07-26] MEDS ORDERED: Haloperidol 5 MG Tab PO PRN (08:50)
[2024-07-26] MEDS ORDERED: FLU VACC TS2024-25(6MOS UP)/PF 45 MCG/0.5 ML SYRINGE IM SCH (08:50)
[2024-07-26] MEDS ORDERED: OLANZapine ODT 5 MG Tab MM PRN (08:50)
[2024-07-26] MEDS ORDERED: Haloperidol Lactate Inj. 5 MG/ML Injection IM PRN (08:50)
[2024-07-26] MEDS ORDERED: LORazepam 2 MG Tab PO PRN (08:50)
[2024-07-26] MEDS ORDERED: Cephalexin Monohydrate 500 MG Cap PO SCH (09:00)
[2024-07-26 09:15] VITALS: BP 85/48
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
--- NOTE | 2024-07-26 13:23 | NUR ---
PT REFUSING ANTIBIOTIC AT THIS TIME. PT DOES NOT TRUST THAT ANTIBIOTIC IS REAL OR THAT SHE HAS N UTI. PT EDUCATED ON MEDICATION AND UA. SH ROSE DECLINED. DR. CHINO NOTIFIED. HE ALSO ENCOURAGED PT T O TAKE MEDICATION WITHOUT SUCCESS.
[2024-07-26 13:25] LABS: Neisseria Gonorrhoea Urine NOT DETECTED (NOT DETECT)
[2024-07-26 14:37] LABS: Chlamydia Trachomatis Urine DETECTED (NOT DETECT)
--- NOTE | 2024-07-26 18:07 | NUR ---
SHIFT SUMMARY PT AWAKE ALERT AND ORIENTATED TO SELF. SHE IN NONCOMPLIANT WITH CARE AND MEDICATION. SPEECH IS DISORGANIZED AND EYE CONTACT IS LIMITED. PT HAS BEEN UP FOR MEALS THEN SLEEPING. PT POSITIVE FOR CHLAMYDIA. DR RODRIGUEZ WOULD LIKE TO WAIT UNTIL TOMORROW FOR URINE C&S BEFORE DECIDING ANTIBIOTIC COARSE. WILL CONTINUE POC
--- NOTE | 2024-07-27 03:33 | NUR ---
PATIENT WAS IN BED RESTING QUIETLY DURING THIS SHIFT. SHE WAS ABRUPT WITH STAFF BUT NOT UNPLEASANT, STATING SHE DID NOT WANT HER EVENING ANTIBIOTIC. SHE REMAINED IN BED THE ENTIRE SHIFT, MOSTLY WITH EYES CLOSED AND RESPIRATIONS CONFIRMED. SHE HAD NO S/SX SUICIDAL IDEATION NOTED THIS SHIFT.
[2024-07-27 08:16] VITALS: BP 96/66
--- NOTE | 2024-07-27 09:22 | NUR ---
PT REFUSED MORNING MEDICATION. REFUSED TO PARTICIPATE IN MORNING INTERVIEW. REFUSED TO GO GROUP. . ABRUPT ANSWERS. AND TOLD TO LEAVE FROM HER ROOM. SHE DID EAT BREAKFAST. WILL LET DR KNOW ON ROUNDS.
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
--- NOTE | 2024-07-27 17:55 | NUR ---
AT 1730 PT EXPRESSED THAT SHE IS OPEN TO STARTING TREATMEN FOR UTI AND CHYLAMIDIA. DR MANRIQUE NOTIFIED. HE WILL TALK TO POSSIBLE HOSPITALIST TO SEE HER TOMORROW.
--- NOTE | 2024-07-27 20:20 | NUR ---
MELINDA LEFT HER ROOM AND WE WENT TO THE DINING ROOM WHERE SHE CONSUMED ONE 1/2 TURKEY SANDWICH, ONE GATORADE, TWO SNACK CRACKERS AND TWO OREOS.
--- NOTE | 2024-07-28 05:31 | NUR ---
ASSUMED CARE FROM PRIOR SHIFT. PATIENT IS SLEEPING THROUGHOUT SHIFT. SHE WAKES EASILY FOR ASSESSMENT. SHE DENIES ANY CURRENT: SI, VH OR AH. SHE CONTINUES TO REFUSE MEDICATIONS. WE WILL REQUEST HOSPITALIST CONSULT FOR UTI AND STD. SHE IS HAVING SOME CLEARING AND ABLE TO VOICE NEEDS. SHE FELL BACK TO SLEEP AFTER ASSESSMENT. SHE SLEPT THROUGHOUT THE NIGHT WITHOUT BEHAVIORS OR ISSUES.
[2024-07-28 08:45] VITALS: BP 113/62
--- NOTE | 2024-07-28 17:57 | NUR ---
SHIFT SUMMARY PT A/O ALERT TO SELF, PLACE, AND PERSON. PT IS GUARDED AND DECLINES TO PARTICIPATE IN INTERVIEW QUESTIONS, ESPECIALLY QUESTIONS RELATED TO SI. PT CURRENTLY HAS AN STD/UTI AND IS ON ABX. PT'S SPEECH IS RAPID AND TANGENTIAL. SHE REPORTS BEING TIRED AND HAS BEEN ASLEEP FOR THE MAJORITY OF THE SHIFT, BUT SHE HAS GOTTEN UP FOR MEALS.
[2024-07-28] MEDS ORDERED: Azithromycin 250 MG Tab PO ONE (21:00)
--- NOTE | 2024-07-29 06:09 | NUR ---
PATIENT SLEPT THROUGH THE NIGHT. NO NOTED BEHAVIORS OR ISSUES.
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
--- NOTE | 2024-07-30 04:43 | NUR ---
ASSUMED CARE FROM PRIOR SHIFT. PATIENT IS ALREADY IN BED SLEEPING. SHE DOES WAKE EASILY FOR ASSESSMENT AND MEDICATIONS. SHE IS COMPLIANT HOWEVER IRRATED WHEN NURSE GIVES HER PM ANTIBIOTICS. SHE DOES WAKE UP AROUND 1AM FOR A SNACK. SHE DOES GO BACK TO SLEEP AND CONTINUES TO SLEEP THROUGHOUT THE NIGHT. SHE CURRENTLY DENIES ANY SI, VH OR AH. SHE DOES SLEEP THROUGH THE NIGHT WITHOUT ANY BEHAVIORS OR ISSUES. WE WILL CONTINUE TO MONITOR EVERY 15 MINUTES FOR SAFETY.
--- NOTE | 2024-07-30 06:12 | NUR ---
PATIENT CONTINUES TO SLEEP, NO NOTE ISSUES OR BEHAVIORS.
[2024-07-30 08:04] VITALS: BP 100/68
[2024-07-30] MEDS ORDERED: Ondansetron 4 MG SoluTab SL PRN (10:55)
--- NOTE | 2024-07-30 15:25 | NUR ---
DISCHARGE INFORMATION: PT HAS BEEN IN CONTACT WITH THE [facility] IN [place]. PROVIDED DUDLEY AND VERBAL PERSMISSION FOR [facility] STAFF TO SPEAK WITH THEM. STATES THAT SHE HAS A BED THERE. THIS RN SPOKE WITH BALA AT THE [facility]. STATES THAT PT DOES HAVE A ROOM. STATES THAT THEY WOULD PREFER TO HAVE HER DOWN THERE 07/31 BUT WILL HOLD HER BED UNTIL 08/01 AT 1700. STATES THAT SHE WILL NEED TO GO TO THEIR SAFE DROP OFF LOCATION WHICH IS THE LIBRARY. ONCE THERE SHE WILL NEED TO REQUEST TO USE THE LIBRARY PHONE TO CALL THE HELP LINE TO LET THEM KNOW SHE IS THERE. THEY WILL EITHER PICK HER UP OR PT CAN WALK, STATES THE [facility] IS WITHIN WALKING DISTANCE. STATES THAT THEY HAVE ADVOCATES THERE WHO WILL WORK WITH HER TO GET HER SET UP WITH OPTIONS, PCP AND ASSIST WITH CHANGING HER INSURANCE. STATES THAT THEY HAVE ACCESS TO A LOT OF RESOURCES IN THEIR AREA TO ASSIST CLIENTS. DROP OFF ADDRESS IS: [address] [place] [id number] HELPLINE NUMBER: [phone]
--- NOTE | 2024-07-30 16:26 | NUR ---
ATTEMPTED TO SET UP TRANSPORTATION WITH [facility]OUGH [facility]. THEY WERE UNABLE TO ACCOMIDATE SETTING UP TRANPORT WITHOUT A PRIOR AUTH. SPOKE WITH JUAN ALBERTO. REACHED OUT [facility] SABINE BENSON. SHE SPOKE WITH QUINTON AT [facility] AND STATED THAT THEY WILL BE CALLING THIS RN TO ASSIST.
--- NOTE | 2024-07-30 16:44 | NUR ---
TRANSPORT INFORMATION: JUAN ALBERTO FROM [facility] CALLED BACK. STATED THAT THEY GOT WHAT THEY NEEDED FROM [facility] AND CONFIRMED THE TRANPORT INFORMATION. SHE IS GOING TO SET UP TRANSPORTATION AND CALL BACK TO LET US KNOW WHAT COMPANY WILL BE COMING.
--- NOTE | 2024-07-30 17:13 | NUR ---
SHIFT SUMMARY: PT ALERT, ORIENTED AND COOPERATIVE. COMPLIANT WITH MEDICATIONS. DENIES SI, HI OR AVH. PLAN FOR DISCHARGE TOMORROW AROUND 1:00 NOTED IN DISCHARGE INFORMATION NOTE.
[2024-07-30 19:51] VITALS: BP 106/9
--- NOTE | 2024-07-30 21:00 | NUR ---
Patient very anxious early in evening, pacing floors. Asked for phone twice, and was apparently talking to s/o. At 2024, patient asked this RN to contact the Doctor and ask him if she could leave tonight. I told her she had a ride coming tomorrow to take her to destination in [place]. She stated she was not going to take arranged transportation, and that her boyfriend would pick her up and drive her tonight. Patient was told that it was not likely she could discharge tonight, and she insisted the physician be called. Spoke to Dr Singh who said no, that the patient was involuntary, and to offer her some ativan to help her calm down. That he would see her in the morning on day of discharge. When patient was explained that she could not discharge tonight, she wanted this RN to call the back and ask him to be here at 0600 so she could use her own transportation. She was told no call would be made tonight. Patient declined ativana at this time.
--- NOTE | 2024-07-30 22:24 | NUR ---
Patient currently sleeping in Sensory room after patient agreed to take 2mg Ativan PO to decrease anxiety and agitation. will continue close monitoring
--- NOTE | 2024-07-31 01:51 | NUR ---
Patient now requesting printed copies of rules for intimate online dating. Explained that our computers have certain subjects blocked and this RN is unable to see or print any copies to give her. Patient then wanted to call boyfriend at 0130 in AM. 5mg sublingual zyprexa given to try to help patient relax and calm down for sleep. will continue close monitoring.
--- NOTE | 2024-07-31 04:12 | NUR ---
Patient extremely anxious and agitated all night. Please see nurses notes. Pacing the floors in the blackman and in her room. Putting together a stack of pages for a safety plan for herself and her kids. Multiple requests were inappropriate for staff to assist with. Wanted to leave [facility] last night to have S/O pick her up so that they could look at apartments to rent so she could get her kids back. Has written several pages and is now working on her second journal. Ativan given per order after patient became agitated/anxious about not being able to discharge last night. SL zyprexa given around 0200 as patient was still pacing and intermittantly sitting in Sensory room journaling. will continue close monitoring
[2024-07-31 08:46] VITALS: BP 122/80
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
[2024-07-31 14:13] LABS: U Amphetamine Screen DETECTED; U Barbituate Screen Not Detected; U Benzodiazapine Screen DETECTED; U Buprenorphine Screen Not Detected; U Cannabinoids Screen Not Detected; U Cocaine Screen Not Detected; U Methadone Screen Not Detected; U Methamphetamine Screen DETECTED; U Opiates Screen Not Detected; U Oxycodone Screen Not Detected; U Phencyclidine Screen Not Detected
== END 2024-07-31 11:34 | disposition home or self-care (01) | DRG 885 ==
LOC: BHU 17:40
PROVIDERS: ADMIT Psychiatry & Neurology Psychiatry
DX: F20.9 Schizophrenia, unspecified (principal); N39.0 Urinary tract infection, site not specified; F15.10 Other stimulant abuse, uncomplicated; F11.10 Opioid abuse, uncomplicated; F17.210 Nicotine dependence, cigarettes, uncomplicated; Z79.899 Other long term (current) drug therapy
CPT/HCPCS: 87491; 87591; 93005; 93010; A9270

== ENCOUNTER 2024-08-05 14:55 | Emergency (ER) | payer OTHER ==
[~2024-08-05] VITALS: Ht 167.6 cm; Wt 54.4 kg
[2024-08-05 16:08] VITALS: BP 104/70
[2024-08-05] MEDS ORDERED: Ondansetron 4 MG SoluTab SL ONE (16:15)
[2024-08-05] MEDS ORDERED: Ketorolac Tromethamine 30mg Vial IM ONE (16:15)
== END 2024-08-05 16:50 | disposition home or self-care (01) ==
LOC: ER 14:55
DX: S00.83XA Contusion of other part of head, initial encounter (principal); F17.210 Nicotine dependence, cigarettes, uncomplicated; Y04.8XXA Assault by other bodily force, initial encounter
CPT/HCPCS: 96372; 99284-25; A9270; J1885

== ENCOUNTER 2024-08-05 20:04 | Emergency (ER) | payer OTHER ==
[~2024-08-05] VITALS: Ht 172.7 cm; Wt 68.0 kg
[2024-08-05 20:42] VITALS: BP 119/76
== END 2024-08-05 20:50 | disposition home or self-care (01) ==
LOC: ER 20:04
DX: R19.7 Diarrhea, unspecified (principal); T39.8X5A Adverse effect of other nonopioid analgesics and antipyretics, not elsewhere classified, initial encounter; F17.210 Nicotine dependence, cigarettes, uncomplicated; Z88.6 Allergy status to analgesic agent
CPT/HCPCS: 99283

== ENCOUNTER 2024-08-06 01:11 | Observation (INO) | payer OTHER ==
[~2024-08-06] VITALS: Ht 167.6 cm; Wt 63.5 kg
[2024-08-06] MEDS ORDERED: Acetaminophen 325 MG TABLET PO ONE (05:45)
[2024-08-06 06:28] LABS: BASOPHILS ABSOLUTE AUTO 0.05 K/mm3 (0.00-0.23); BASOPHILS PERCENT AUTO 1 % (0-2); EOSINOPHILS ABSOLUTE AUTO 0.37 K/mm3 (0.00-0.68); EOSINOPHILS PERCENT AUTO 6 % (0-6); Hematocrit 37.9 % (33.0-51.0); Hemoglobin 12.5 g/dL (11.5-16.0); IMMATURE GRAN ABSOLUTE AUTO 0.01 K/mm3 (0.00-0.10); IMMATURE GRAN PERCENT AUTO 0 % (0-1); LYMPHOCYTES ABSOLUTE AUTO 1.91 K/mm3 (0.84-5.20); LYMPHOCYTES PERCENT AUTO 33 % (21-46); MONOCYTES ABSOLUTE AUTO 0.55 K/mm3 (0.16-1.47); MONOCYTES PERCENT AUTO 9 % (4-13); Mean Corpuscular HGB 28.1 pg (26.0-34.0); Mean Corpuscular Volume 85 fL (80-100); Mean Platelet Volume 11.5 fL (9.1-12.4); NEUTROPHILS ABSOLUTE AUTO 2.97 K/mm3 (1.96-9.15); NEUTROPHILS PERCENT AUTO 51 % (41-73); Platelet Count 173 K/mm3 (150-400); RDW Coefficient Variation 14.2 % (11.7-14.2); RDW Standard Deviation 43.9 fL (35.1-46.3); Red Blood Cell Count 4.45 M/mm3 (3.80-5.20); White Blood Cell Count 5.86 K/mm3 (4.00-11.30)
[2024-08-06 06:47] LABS: Ethanol (Alcohol), Blood, Med <3 mg/dL; Salicylate <1.7 mg/dL (2.8-20.0)
[2024-08-06 06:52] LABS: Alanine Aminotransfer (ALT/SGP 25 U/L (12-78); Albumin, Blood 3.8 g/dL (3.4-5.0); Albumin/Globulin Ratio 1.2 (0.8-1.8); Alk Phos 86 U/L (50-136); Anion Gap 10 mmol/L (3-11); Aspartate Aminotrans (AST/SGOT 23 U/L (12-37); Bilirubin, Total 1.2 mg/dL (0.1-1.0); Blood Urea Nitrogen 33 mg/dL (8-24); Bun/Creatinine Ratio 32.4 (12.0-20.0); CO2, Blood 22 mmol/L (21-32); Calcium, Blood 8.6 mg/dL (8.5-10.1); Chloride, Blood 108 mmol/L (98-108); Creatinine, Blood 1.02 mg/dL (0.40-1.00); Globulin, Blood 3.1 g/dL (2.2-4.0); Glomerular Filtration Rate 74 (60-); Glucose, Blood 118 mg/dL (70-99); Potassium, Blood 3.7 mmol/L (3.5-5.5); Sodium, Blood 136 mmol/L (136-145); Total Protein, Blood 6.9 g/dL (6.4-8.2)
[2024-08-06 06:55] LABS: Acetaminophen, Random <2.0 ug/mL (10.0-30.0)
[2024-08-06 10:49] VITALS: BP 90/54
== END 2024-08-06 23:00 | disposition home or self-care (01) ==
LOC: ER 01:11 → EOR 01:12
PROVIDERS: ADMIT Student in an Organized Health Care Education/Training Program
DX: F32.9 Major depressive disorder, single episode, unspecified (principal); R45.851 Suicidal ideations; F17.210 Nicotine dependence, cigarettes, uncomplicated; F15.10 Other stimulant abuse, uncomplicated; Z79.899 Other long term (current) drug therapy; Z88.8 Allergy status to other drugs, medicaments and biological substances
CPT/HCPCS: 80053; 80320; 84703; 85025; 93005; 93010; 99285-25; A9270; G0378; G0480

== ENCOUNTER 2024-08-20 14:38 | Emergency (ER) | payer OTHER ==
[~2024-08-20] VITALS: Ht 170.2 cm; Wt 66.2 kg
[2024-08-20 15:06] VITALS: BP 106/87
== END 2024-08-20 16:26 | disposition left against medical advice (07) ==
LOC: ER 14:38
DX: S09.90XA Unspecified injury of head, initial encounter (principal); S19.9XXA Unspecified injury of neck, initial encounter; W22.09XA Striking against other stationary object, initial encounter; Z53.29 Procedure and treatment not carried out because of patient's decision for other reasons
CPT/HCPCS: 72040; 99281-25

== ENCOUNTER 2024-08-21 14:35 | Emergency (ER) | payer OTHER ==
[~2024-08-21] VITALS: Ht 170.2 cm; Wt 66.2 kg
[2024-08-21 14:59] VITALS: BP 117/84
== END 2024-08-21 17:27 | disposition home or self-care (01) ==
LOC: ER 14:35
DX: F15.10 Other stimulant abuse, uncomplicated (principal); F17.210 Nicotine dependence, cigarettes, uncomplicated; Z88.5 Allergy status to narcotic agent; Z88.8 Allergy status to other drugs, medicaments and biological substances
CPT/HCPCS: 99283

== ENCOUNTER 2024-08-25 06:27 | Emergency (ER) | payer OTHER ==
[~2024-08-25] VITALS: Ht 167.6 cm; Wt 65.8 kg
[2024-08-25 06:38] VITALS: BP 115/82
== END 2024-08-25 12:18 | disposition home or self-care (01) ==
LOC: ER 06:27
DX: R45.851 Suicidal ideations (principal); F15.10 Other stimulant abuse, uncomplicated; F17.210 Nicotine dependence, cigarettes, uncomplicated; Z65.9 Problem related to unspecified psychosocial circumstances; Z63.0 Problems in relationship with spouse or partner; Z88.5 Allergy status to narcotic agent; Z88.8 Allergy status to other drugs, medicaments and biological substances
CPT/HCPCS: 99283

== ENCOUNTER 2025-08-17 08:34 | Emergency (ER) | payer OTHER ==
[~2025-08-17] VITALS: Ht 167.6 cm; Wt 57.6 kg
[~2025-08-17 08:34] MED LIST changes: +Amoxicillin500 MG PO; +Amoxicillin875 MG PO
[2025-08-17 08:59] VITALS: BP 107/66
[2025-08-17 09:45] LABS: BASOPHILS ABSOLUTE AUTO 0.04 K/mm3 (0.00-0.23); BASOPHILS PERCENT AUTO 1 % (0-2); EOSINOPHILS ABSOLUTE AUTO 0.36 K/mm3 (0.00-0.68); EOSINOPHILS PERCENT AUTO 6 % (0-6); Hematocrit 39.9 % (33.0-51.0); Hemoglobin 13.3 g/dL (11.5-16.0); IMMATURE GRAN ABSOLUTE AUTO 0.01 K/mm3 (0.00-0.10); IMMATURE GRAN PERCENT AUTO 0 % (0-1); LYMPHOCYTES ABSOLUTE AUTO 2.03 K/mm3 (0.84-5.20); LYMPHOCYTES PERCENT AUTO 35 % (21-46); MONOCYTES ABSOLUTE AUTO 0.44 K/mm3 (0.16-1.47); MONOCYTES PERCENT AUTO 8 % (4-13); Mean Corpuscular HGB Conc 33.3 g/dL (31.5-36.5); Mean Corpuscular Volume 89 fL (80-100); NEUTROPHILS ABSOLUTE AUTO 2.97 K/mm3 (1.96-9.15); NEUTROPHILS PERCENT AUTO 51 % (41-73); NRBC ABSOLUTE 0.00 K/mm3 (0.00-0.02); NRBC Auto 0.0 /100 WBC (0.0-0.2); Platelet Count 200 K/mm3 (150-400); RDW Coefficient Variation 13.3 % (11.7-14.2); RDW Standard Deviation 43.5 fL (35.1-46.3)
[2025-08-17 09:56] LABS: Source, Urine Clean Catch
[2025-08-17 10:01] LABS: Bilirubin, Urine Neg (Neg); Color, Urine Yellow (P-Yellow); Glucose Qualitative, Urine Neg (Neg); Ketones, Urine Neg (Neg); Leukocyte Esterase, Urine 2+ (Neg); Protein, Urine Neg (Neg); Specific Gravity, Urine 1.025 (1.003-1.022); Urobilinogen, Urine NORM (Normal)
[2025-08-17 10:09] LABS: Red Blood Cells, Urine 0-2 /hpf (0-2)
[2025-08-17 10:11] LABS: U Amphetamine Screen DETECTED; U Barbiturate Screen Not Detected; U Benzodiazapine Screen Not Detected; U Buprenorphine Screen Not Detected; U Cannabinoids Screen Not Detected; U Cocaine Screen Not Detected; U Methadone Screen Not Detected; U Methamphetamine Screen DETECTED; U Opiates Screen Not Detected; U Oxycodone Screen Not Detected; U Phencyclidine Screen Not Detected
[2025-08-17 10:15] LABS: Ethanol (Alcohol), Blood, Med <3 mg/dL; Salicylate <1.7 mg/dL (2.8-20.0)
[2025-08-17 10:36] LABS: Acetaminophen, Random <2.0 ug/mL (10.0-30.0); Alanine Aminotransfer (ALT/SGP 20 U/L (12-78); Albumin, Blood 3.6 g/dL (3.4-5.0); Albumin/Globulin Ratio 1.2 (0.8-1.8); Anion Gap 8 mmol/L (3-11); Aspartate Aminotrans (AST/SGOT 21 U/L (12-37); Bilirubin, Total 0.6 mg/dL (0.1-1.0); Blood Urea Nitrogen 19 mg/dL (8-24); CO2, Blood 26 mmol/L (21-32); Calcium, Blood 8.6 mg/dL (8.5-10.1); Chloride, Blood 107 mmol/L (98-108); Creatinine, Blood 0.87 mg/dL (0.40-1.00); Globulin, Blood 3.0 g/dL (2.2-4.0); Glucose, Blood 115 mg/dL (70-99); Potassium, Blood 3.8 mmol/L (3.5-5.5); Sodium, Blood 137 mmol/L (136-145); Total Protein, Blood 6.6 g/dL (6.4-8.2)
== END 2025-08-17 15:31 | disposition other institution (70) ==
LOC: ER 08:34 → EOR 08:35
PROVIDERS: Student in an Organized Health Care Education/Training Program
DX: R45.851 Suicidal ideations (principal); F15.90 Other stimulant use, unspecified, uncomplicated; F10.90 Alcohol use, unspecified, uncomplicated; Z88.8 Allergy status to other drugs, medicaments and biological substances; F17.210 Nicotine dependence, cigarettes, uncomplicated
CPT/HCPCS: 80053; 80320; 81001; 81025; 85025; 87077; 87086; 87186; 99285; G0378; G0480

== ENCOUNTER 2025-08-17 13:04 | Inpatient (IN) | payer OTHER ==
[~2025-08-17] VITALS: Ht 167.6 cm; Wt 59.5 kg
[2025-08-17] MEDS ORDERED: Aluminum Hydroxide 320MG/5ML 473 ML PO PRN (14:35)
[2025-08-17] MEDS ORDERED: FLU VACC TS2025-26(6MOS UP)/PF 45 MCG/0.5 ML SYRINGE IM SCH (14:35)
[2025-08-17] MEDS ORDERED: Ondansetron 4 MG SoluTab MM PRN (14:40)
[2025-08-17] MEDS ORDERED: Polyethylene Glycol 3350 17 gm PO PRN (14:40)
[2025-08-17 15:45] VITALS: BP 136/110
[2025-08-17 16:25] VITALS: BP 136/110
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
[2025-08-17 19:47] VITALS: BP 93/50
--- NOTE | 2025-08-18 04:11 | NUR ---
Patient spent the majority of hte shift in bed. She did get OOB to join her peers for snack time. After snack, she went back to bed and woke every time staff would do a 15 minute check until around 0230 when she finally fell asleep. She states she has intermittant suicidal thoughts but no plan and no intention at this time. No HI or AVTH. One PRN Trazodone was given as requested. Will continue close monitoring every 15 minutes for safety and comfort.
[2025-08-18 08:02] LABS: CHOL/HDL RATIO 2.1; Cholesterol 187 mg/dL (50-200); HDL Cholesterol 88 mg/dL (>39); LDL/HDL RATIO 1.0; Low Density Lipoprotein Chol 84 mg/dL (0-110); Triglycerides 73 mg/dL (30-140); Very Low Density Lipoprot Chol 14 mg/dL (6-28)
[2025-08-18 08:50] VITALS: BP 99/68
[2025-08-18] MEDS ORDERED: Multivitamins 1 Tab PO SCH (09:00)
--- NOTE | 2025-08-18 10:29 | NUR ---
SHIFT ASSESSMENT: PT ALERT, ORIENTED AND COOPERATIVE WITH CARE. DENIES SI, HI AND AVH. SHE STATES THAT HER MOOD IS "OK" BUT SHE IS TIRED. SHE APPEARS WELL GROOMED AND HAS APPROPRIATE EYE CONTACT. SHE ATTENDED BREAKFAST AND SHOWERED THIS AM. RETURNED TO HER ROOM AND IS NOW RESTING IN BED.
--- NOTE | 2025-08-18 16:59 | NUR ---
SHIFT SUMMARY: PT REMANIED CALM AND COOPERATIVE WITH CARE. SHE ATTENDED MEALS AND SHOWERED. PT SPENT MUCH OF THE DAY RESTING ON HER BED IN HER ROOM. NO ACUTE CHANGES FROM SHIFT ASSESSMENT. PT MONITORED WITH Q 15 MIN CHECKS FOR SAFETY PER UNIT PROTOCOL.
--- NOTE | 2025-08-18 23:02 | NUR ---
Trazodone given for sleep at patient request with good result.
--- NOTE | 2025-08-19 04:23 | NUR ---
Patient spent most of her evening in bed sleeping. She did come out and have a snack before HS. She is alert and oriented times four. Patient did request and receive one PRN TRAZODONE with good result. Complaints of mild headache pain were resolved with 650mg Tylenol. Denies SI,HI and AVTH at time of evening assessment. Will continue close monitoring every 15 minutes for comfort and safety.
[2025-08-19 08:45] VITALS: BP 104/68
[2025-08-19] MEDS ORDERED: Lidocaine 4% 1 Patch TOP SCH (13:10)
--- NOTE | 2025-08-19 17:48 | NUR ---
SHIFT SUMMARY PT AxOx4. PLEASANT AND COOPERATIVE WITH CARE. PT DENIES SI/HI AND AVTH THIS SHIFT. SHE REPORTED HER MOOD WAS "FINE, BETTER AND TIRED" THIS SHIFT. SHE HAS BEEN FOLLOWING HER TREATMENT PLAN INCLUDING TAKING MEDICATIONS PRESCRIBED, ATTENDING MILIEU THERAPY GROUPS AND MINGLING APPROPRIATELY WITH PEERS/STAFF THIS SHIFT. SHE NAPPED FREQUENTLY IN BETWEEN U ACTIVITIES. SHE ALSO REPORTED CHRONIC BACK AND NECK PAIN, WHICH SHE WAS PROVIDED NEW RX OF LIDOCAINE PATCHES. PT REPORTED RELIEF WITH LIDOCAINE PATCHES. PT IS CURRENTLY SITTING IN DINING ROOM EATING DINNER. DENIES ANY NEEDS AT THIS TIME.
[2025-08-19 20:04] VITALS: BP 100/59
--- NOTE | 2025-08-19 23:05 | NUR ---
Vistaril given at patient's request for something for anxiety at 1920 for mass score of 3. Good result acheived. patient stated feeling much better
--- NOTE | 2025-08-20 04:08 | NUR ---
Patient spent her entire evening out visiting her peers in the milieu. Asked for something for anxiety early in the evening. Mass score 3 and was given Vistaril with good result. Later in the evening, she was given Amphogel for heartburn which seemed to do the trick. Has been sleeping since approximately 0. Will continue close monitoring every 15 minutes for comfort and safety
--- NOTE | 2025-08-20 05:29 | NUR ---
Patient sleeping. did not wake to remove lidocaine patches at 0300
[2025-08-20 08:46] VITALS: BP 110/72
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
[2025-08-20 19:05] VITALS: BP 102/60
--- NOTE | 2025-08-21 05:35 | NUR ---
Patient is alert adn oriented times four. She is conversant and pleasant with staff and her peers in the milieu. She denies SI,HI, AVTH during evening assessment. She has been asking about the possibility of discharge today. Bed at 2200, and with the aid of the minipress and zyprexa, slept all night. Will continue close observation every 15 minutes for comfort and safety.
[2025-08-21 08:59] VITALS: BP 107/65
--- NOTE | 2025-08-21 09:25 | NUR ---
SHIFT ASSESSMENT: PT IS ALERT, ORIENTED AND COOPERATIVE WITH CARE. SHE DENIES SI, HI AND AVH. SHE APPEARS FAIRLY WELL GROOMED AND HAS APPROPRIATE EYE CONTACT. SHE STATES THAT HER MOOD IS GOOD AND SHE IS READY TO GO HOME. AFFECT IS CONGRUENT. SHE WAS PRESENT FOR BREAKFAST AND COMPLIANT WITH MEDICATIONS. WHEN ASKED IF SHE HAS A PLAN FOR A SAFE PLACE TO GO UPON DISCHARGE SHE STATED THAT SHE DID. NAMED OFF A COUPLE OF FAMILY MEMBERS, INCLUDING HER SISTER THAT SHE SAID SHE CAN STAY WITH. PT STATES "YES" WHEN ASKED IF SHE HAS A SAFE PLACE TO GO. PT MONITORED WITH Q 15 MIN CHECKS FOR SAFETY PER UNIT PROTOCOL.
--- NOTE | 2025-08-21 11:57 | NUR ---
DISCHARGE INFORMATION: -PER [facility] SOCAIL WORKER JARETT: SHE SPOKE WITH PATIENTS BOYFRIENJing AZEVEDO AND CONFIRMED THAT PT IS ABLE TO STAY WITH HIM. THIS IS NOT THE PLACE SHE WAS PREVIOUSLY STAYING. -PT STATED THAT SHE DOES NOT HAVE A PRIMARY CARE PROVIDER. SHE GAVE VERBAL PERMISSION FOR THIS RN TO CALL HER HEALTH PLAN TO GET ASSIGNED PROVIDER. -CALL PLACED TO [facility], PATIENT IS ASSIGNED TO [facility] -CALL PLACED TO [facility]. FOLLOW UP AND NEW PATIENT APPOINTMENTS SCHEDULED. PT UPDATED AND WOULD LIKE TRANSPORT SET UP FOR HER APPOINTMENT ON 08/23 [facility] TRANSPORT. -DISCHARGE FOLLOW UP: 08/23/25 @ [address] CHRISTIANO DUARTE. [facility] OFFICE. -NEW PATIENT APPOINTMENT: 12/26/24 @ 0940 WITH CHRISTIANO DUARTE. [facility]
[2025-08-21] MEDS ORDERED: PRAZ1 PO (13:31)
[2025-08-21] MEDS ORDERED: OLAN10A MM (13:31)
--- NOTE | 2025-08-21 14:43 | NUR ---
Patient saw the provider today and safe for discharge was determined. The PK order system was down so Dr. Ronal Singh provided a verbal order to place discharge BHU order, Minipress 1 mg at bedtime x 30 day (call to [facility] pharm), Olanzapine 10 mg po bedtime x 30 (call to hometown). Discharge primary DX was SI. The above orders were completed before the patients discharge this shift.
--- NOTE | 2025-08-21 14:46 | NUR ---
DISCHARGE NOTE: -THIS RN SPOKE WITH [facility] FOR TRANPORTATION HOME AND SET UP TRANSPORT FOR PATIENTS 08/23 APPOINTMENT WELL. -PT PROVIDED WITH DISCHARGE INSTRUCTIONS AND INFORMATION ON TRANPSORT TO FOLLOW UP APPOINTMENT. ENCOURAGED PT TO ATTEND FOLLOW UP APPOINTMENTS, TAKE MEDICATIONS PRESCRIBED AND RETURN TO THE ER IF SYMPTOMS RETURN OR WORSEN. PT STATED FULL UNDERSTANDING AND DENIED QUESTIONS. BELONGINGS RETURNED BY CHRISTIAN CUMMINGS. SHE AMBUALTED OUT OF OF UNIT TO AWAITING TRANSPORT WITHOUT DIFFICULTY. DISCHARGE INSTRUCTIONS AND BELONGINGS IN HAND.
== END 2025-08-21 14:40 | disposition home or self-care (01) | DRG 885 ==
LOC: BHU 13:04
PROVIDERS: ADMIT Psychiatry & Neurology Psychiatry
DX: F25.9 Schizoaffective disorder, unspecified (principal); R45.851 Suicidal ideations; F15.20 Other stimulant dependence, uncomplicated
CPT/HCPCS: 36415; 80061; 83036; A9270

== ENCOUNTER 2025-08-24 03:09 | Emergency (ER) | payer OTHER ==
[~2025-08-24] VITALS: Ht 167.6 cm; Wt 54.4 kg
[~2025-08-24 03:09] MED LIST changes: +OLAN10A MM; +PRAZ1 PO
[2025-08-24] MEDS ORDERED: Methyl Salicylate/Menth/Camph 57 GM TUBE TOP ONE (04:40)
[2025-08-24 05:35] VITALS: BP 104/68
[2025-08-24] MEDS ORDERED: TRAZ100 (10:13)
[2025-08-24] MEDS ORDERED: OLAN10 PO (16:53)
== END 2025-08-24 05:37 | disposition home or self-care (01) ==
LOC: ER 03:09
DX: S46.912A Strain of unspecified muscle, fascia and tendon at shoulder and upper arm level, left arm, initial encounter (principal); Z88.8 Allergy status to other drugs, medicaments and biological substances; F17.210 Nicotine dependence, cigarettes, uncomplicated; W19.XXXA Unspecified fall, initial encounter
CPT/HCPCS: 73030; 99283-25; A9270

== ENCOUNTER 2025-08-24 08:41 | Observation (INO) | payer OTHER ==
[~2025-08-24] VITALS: Ht 167.6 cm; Wt 59.0 kg
[2025-08-24 09:50] VITALS: BP 105/74
[2025-08-24] MEDS ORDERED: TRAZ100 (10:13)
[2025-08-24 10:20] LABS: BASOPHILS ABSOLUTE AUTO 0.03 K/mm3 (0.00-0.23); BASOPHILS PERCENT AUTO 1 % (0-2); EOSINOPHILS ABSOLUTE AUTO 0.36 K/mm3 (0.00-0.68); EOSINOPHILS PERCENT AUTO 6 % (0-6); Hematocrit 36.8 % (33.0-51.0); Hemoglobin 11.9 g/dL (11.5-16.0); IMMATURE GRAN ABSOLUTE AUTO 0.01 K/mm3 (0.00-0.10); IMMATURE GRAN PERCENT AUTO 0 % (0-1); LYMPHOCYTES ABSOLUTE AUTO 1.70 K/mm3 (0.84-5.20); LYMPHOCYTES PERCENT AUTO 27 % (21-46); MONOCYTES ABSOLUTE AUTO 0.62 K/mm3 (0.16-1.47); MONOCYTES PERCENT AUTO 10 % (4-13); Mean Corpuscular HGB Conc 32.3 g/dL (31.5-36.5); Mean Corpuscular Volume 90 fL (80-100); NEUTROPHILS ABSOLUTE AUTO 3.67 K/mm3 (1.96-9.15); NEUTROPHILS PERCENT AUTO 57 % (41-73); NRBC ABSOLUTE 0.00 K/mm3 (0.00-0.02); NRBC Auto 0.0 /100 WBC (0.0-0.2); Platelet Count 172 K/mm3 (150-400); RDW Coefficient Variation 13.5 % (11.7-14.2); RDW Standard Deviation 45.1 fL (35.1-46.3)
[2025-08-24 10:46] LABS: Ethanol (Alcohol), Blood, Med <3 mg/dL; Salicylate <1.7 mg/dL (2.8-20.0); Thyroid Stimulating Hormone 1.030 uIU/mL (0.360-4.800)
[2025-08-24 10:58] LABS: Acetaminophen, Random <2.0 ug/mL (10.0-30.0); Alanine Aminotransfer (ALT/SGP 39 U/L (12-78); Albumin, Blood 3.6 g/dL (3.4-5.0); Albumin/Globulin Ratio 1.2 (0.8-1.8); Anion Gap 7 mmol/L (3-11); Aspartate Aminotrans (AST/SGOT 30 U/L (12-37); Bilirubin, Total 1.1 mg/dL (0.1-1.0); Blood Urea Nitrogen 25 mg/dL (8-24); CO2, Blood 25 mmol/L (21-32); Calcium, Blood 8.7 mg/dL (8.5-10.1); Chloride, Blood 109 mmol/L (98-108); Creatinine, Blood 0.79 mg/dL (0.40-1.00); Globulin, Blood 2.9 g/dL (2.2-4.0); Glucose, Blood 83 mg/dL (70-99); Potassium, Blood 4.0 mmol/L (3.5-5.5); Sodium, Blood 137 mmol/L (136-145); Total Protein, Blood 6.5 g/dL (6.4-8.2)
[2025-08-24 11:17] LABS: Source, Urine Clean Catch
[2025-08-24 11:22] LABS: Bilirubin, Urine Neg (Neg); Color, Urine Yellow (P-Yellow); Glucose Qualitative, Urine Neg (Neg); Ketones, Urine Neg (Neg); Leukocyte Esterase, Urine 1+ (Neg); Protein, Urine 1+ (Neg); Specific Gravity, Urine 1.025 (1.003-1.022); Urobilinogen, Urine NORM (Normal)
[2025-08-24 11:32] LABS: Red Blood Cells, Urine 0-2 /hpf (0-2)
[2025-08-24 11:34] LABS: U Amphetamine Screen DETECTED; U Barbiturate Screen Not Detected; U Benzodiazapine Screen Not Detected; U Buprenorphine Screen Not Detected; U Cannabinoids Screen Not Detected; U Cocaine Screen Not Detected; U Methadone Screen Not Detected; U Methamphetamine Screen DETECTED; U Opiates Screen Not Detected; U Oxycodone Screen Not Detected; U Phencyclidine Screen Not Detected
[2025-08-24] MEDS ORDERED: OLAN10 PO (16:53)
== END 2025-08-24 22:52 | disposition other institution (70) ==
LOC: ER 08:41 → EOR 08:42
PROVIDERS: ADMIT Emergency Medicine
DX: F20.9 Schizophrenia, unspecified (principal); R45.851 Suicidal ideations; F32.A Depression, unspecified; F17.210 Nicotine dependence, cigarettes, uncomplicated; F15.10 Other stimulant abuse, uncomplicated; F10.10 Alcohol abuse, uncomplicated; K76.0 Fatty (change of) liver, not elsewhere classified; Z79.899 Other long term (current) drug therapy; Z88.6 Allergy status to analgesic agent; Z88.8 Allergy status to other drugs, medicaments and biological substances
CPT/HCPCS: 36415; 80053; 80320; 81001; 81025; 84439; 84443; 85025; 99285; A9270; G0378; G0480

== ENCOUNTER 2025-08-24 14:51 | Inpatient (IN) | payer OTHER ==
[~2025-08-24] VITALS: Ht 170.2 cm; Wt 61.0 kg
[~2025-08-24 14:51] MED LIST changes: +TRAZ100
[2025-08-24] MEDS ORDERED: Haloperidol Lactate Inj. 5 MG/ML Injection IM PRN (16:15)
[2025-08-24] MEDS ORDERED: DiphenhydrAMINE HCl 50 MG/ML 1ML Vial IM PRN (16:15)
[2025-08-24] MEDS ORDERED: FLU VACC TS2025(65UP)/MF59C/PF 45 MCG/0.5 ML SYRINGE IM SCH (16:15)
[2025-08-24] MEDS ORDERED: LORazepam 2 MG/ML 1ML Injection IM PRN (16:20)
[2025-08-24] MEDS ORDERED: Ondansetron 4 MG SoluTab MM PRN (16:20)
[2025-08-24] MEDS ORDERED: Polyethylene Glycol 3350 17 gm PO PRN (16:25)
[2025-08-24] MEDS ORDERED: Aluminum Hydroxide 320MG/5ML 473 ML PO PRN (16:25)
[2025-08-24] MEDS ORDERED: PRAZ1 PO (16:52)
[2025-08-24] MEDS ORDERED: OLAN10 PO (16:53)
[2025-08-24 17:00] VITALS: BP 106/72
--- NOTE | 2025-08-24 17:10 | NUR ---
ADMISSION 1646 PATIENT ARRIVED WITH U STAFF AND A DRYING CAN WORKER. PATIENT HAS AN ANGRY AFFECT AND REFUSED TO SIGN HER BELONINGS FORM WITH THE MHA WHO WAS SIGNING HER INTO THE U. PATIENT REFUSED TO SPEAK WITH THE MHA AND REQUESTED THAT THE NURSE HELP HER. THIS RN WENT TO ASSIST, WHICH ALSO QUICKLY TURNED INTO REFUSALS. PATIENT IS YELLING "I AM NOT SIGNING ANYTHING". THIS RN AND ANOTHER RN PROCEEDED TO ATTEMPT THE SKIN CHECK. SKIN APPEARS HEALTHY. THROUGH OUT THE ASSESSMENT, THE PATIENT WAS BLUNTED AND ANXIOUS YELLING AT US TO NOT MAKE CONTACT. "JUST DROP THE PANTS AND SOCKS" SO SHE COULD PICK THEM UP. SHE DID CHANGE INTO U SCRUBS. SHE WAS BROUGHT INTO THE CONSULT ROOM. WE ATTEMPTED TO SIGN THE NURSING FORMS, (GENERAL CONSENT ECT) BUT SHE REFUSED TO SIGN SAYING "I JUST DID ALL THIS 5 DAYS AGO, IT'S NOT MY FAULT YOU DIDN'T DO YOUR JOB RIGHT AND HAVE TO DO IT AGAIN". EXPLANATION OF EACH ADMISSION REQUIRES ITS OWN SET OF FORMS AND ADMISSIONS FAILED, AND SHE REPEATED HERSELF SAYING WE DIDN'T DO OUR JOB RIGHT THE FIRST TIME AND SHE REFUSED TO SIGN. SHE STATES SHE ISN'T DOING ANY OF THIS. SHE STOOD UP, YELLING SHE WALKED OUT OF THE CONSULT ROOM. PATIENT IS CURRENTLY RESTING IN HER ROOM. SHE HAD BEEN GIVEN 10 MG OLANZAPINE IN THE ER BEFORE COMING TO [facility]. ADMISSION WILL NEED TO COMPLETED WHEN PATIENT IS WILLING.
[2025-08-24 17:29] VITALS: BP 106/72
[2025-08-24 17:44] VITALS: BP 106/72
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
[2025-08-24 19:33] VITALS: BP 113/71
--- NOTE | 2025-08-24 22:09 | NUR ---
NELDA REMOVED: PATIENT ADMITTED THAT SHE HAD BROUGHT A RUBBER BAND IN HER BELONGINGS AND THAT IT WAS IN HER ROOM. SHE ADMITTED THAT SHE WAS "THINKING ABOUT HURTING MYSELF WITH IT." MHA FOUND RUBBER BAND AND REMOVED IT INTO A TRASH RECEPTACLE. CONTINUING TO MONITOR FOR SAFETY. PATIENT IS IN THE SENSORY ROOM AT THIS TIME AND CAMERA ALLOWS CONSISTENT OBSERVATION WELL FIFTEEN MINUTE ROUNDS.
--- NOTE | 2025-08-25 00:24 | NUR ---
MEDICATION: PATIENT C/O CONSTIPATION. SHE REQUESTED A LAXATIVE. MIRALAX WAS GIVEN AT 0021. PATIENT STILL UP AND JOURNALING IN THE SENSORY ROOM. CONTINUING TO MONITOR FOR EFFECTIVENESS AND FOR SAFETY WITH Q15 MINUTE CHECKS.
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
[2025-08-25 08:56] VITALS: BP 100/66
[2025-08-25] MEDS ORDERED: Multivitamins 1 Tab PO SCH (09:00)
[2025-08-25] MEDS ORDERED: Methyl Salicylate/Menth/Camph 57 GM TUBE TOP PRN (11:05)
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
[2025-08-25 19:23] VITALS: BP 105/71
--- NOTE | 2025-08-26 04:16 | NUR ---
SHIFT SUMMARY PATIENT IN AND OUT OF MILIEU. DENIES SI, HI OR AVTH. APPEARS IRRITABLE, VERBALIZED THAT SHE FEELS "TIRED" AND FEELING ANXIOUS WITH MASS 3, MEDICATED WITH HYDROXYZINE, WITH LITTLE EFFECT. REQUESTING VARUN-QUILES TO RIGHT KNEE AND LEFT SHOULDER AND NECK FOR PAIN 6/10 CHRONIC IN NATURE DENIES NEED FOR TYLENOL. PATIENT COOPERATIVE WITH SCHEDULED MEDICATIONS. REQUESTING MELATONIN FOR SLEEP AID. PATIENT APPEARS TO BE SLEEPING WELL T/O NIGHT RESP EVEN AND UNLABORED. CONTINUE TO MONITOR Q15MIN.
[2025-08-26 07:52] VITALS: BP 106/73
--- NOTE | 2025-08-26 08:43 | NUR ---
SHIFT ASSESSMENT: PT IS ALERT, ORIENTED AND COOPERATIVE. SHE APPEARS FAIRLY WELL GROOMED AND HAS APPROPRIATE EYE CONTACT. SHE STATES THAT SHE IS "JUST TIRED" WHEN ASKED ABOUT HER MOOD. SHE DENIES SI, HI AND AVH. SHE APPEARS ANNOYED AND HAS AN IRRITABLE AFFECT DURING OUR CONVERSATION. SHE HAS BEEN UP FOR BREAKFAST AND COMPLIANT WITH AM MEDICATIONS. MONITORED WITH Q 15 MIN CHECKS FOR SAFETY PER UNIT PROTOCOL.
--- NOTE | 2025-08-26 17:50 | NUR ---
SHIFT SUMMARY: PT SPENT MUCH OF THE DAY RESTING IN HER ROOM BUT DID ATTEND MEALS. SHE CAME TO THE NURSES STATION IN THE EVENING ASKING TO TALK ABOUT HER DISCHARGE. DISCUSSED HOLD STATUS WITH PATIENT WHO STATES THAT SHE WAS TOLD IT WAS DROPPED. EXPLAINED TO PT AT THIS TIME HER HOLD IS STILL IN PLACE AND THAT SHE CAN SPEAK WITH THE DOCTOR TOMORROW ABOUT HER REQUEST TO DISCHARGE. PT WALKED AWAY WITHOUT RESPONDING AND WENT TO DINNER. NO FURTHER CHANGES THIS SHIFT FROM SHIFT ASSESSMENT. PT MONITORED WITH Q 15 MIN CHECKS FOR SAFETY PER UNIT PROTOCOL.
[2025-08-26 20:29] VITALS: BP 117/73
--- NOTE | 2025-08-27 04:20 | NUR ---
Patient is alert and oriented times four. Her demeanor is guarded. She stayed in her bed throughout the evening except for snack time. Denies SI,HI and AVTH during brief evening assessment. She has slept all night with even visible respirations. She had complainerd of posterior neck and knee pain, and asked for a dose of maral alegria. But when snack was over, this RN went to find her, and she had already layed back down in bed and would not respond. Will continue close monitoring every 15 minutes for comfort and safety
[2025-08-27 08:49] VITALS: BP 107/75
--- NOTE | 2025-08-27 13:20 | NUR ---
ASSUMED PT CARE @0730. PT IS RESTING IN BED AT BEGINNING OF SHIFT. SHE DOES GET UP FOR MORNING COFFEE, SHOWER AND BREAKFAST. SHE IS PLEASANT AND COOPERATIVE WITH CARE. SHE REPORTS SHE FEELS MEDICATION IS HELPING AND DENIES ANY ADVERSE EFFECTS. SHE REPORTS HER MOOD IS TIRED. AFFECT IS CONGRUENT. SHE DENIES SI, AVH. SHE AGREED TO PARTICIPATE IN GROUPS TODAY. SHE IS INTERESTED IN TREATMENT AFTER DC. PT IS INTERACTING WELL WITH PEERS AND STAFF. WILL CONTINUE POC
--- NOTE | 2025-08-27 17:19 | NUR ---
SHIFT SUMMARY PT RECIEVED FLU SHOT IN L. DELTOID. DOCUMENTED AND TOLERATED WELL. SHE RECIEVED PRN TYLENOL AND ICY HOT FOR L SHOULDER PAIN WITH GOOD EFFECTS. NO OTHER CLINICAL CHANGES
[2025-08-27 19:14] VITALS: BP 111/71
--- NOTE | 2025-08-27 19:21 | NUR ---
vadimtaril given for MASS score of 3. (anxiety and restlessness)
--- NOTE | 2025-08-27 22:34 | NUR ---
Patient asked this RN to talk to her in the sensory room where she immediately got tearful regarding not being able to see her son. She also discussed that she feels like she goes in and out of suicidality depending on her mindset regarding her ability to persevere the time it takes for her medications to become theraputic. Currently, she denies SI,HI and AVTH during evening assessment. Will continue close monitoring every 15 minutes for comfort and safety per unit protocol. Assured patient she was safe in U, and that staff would be available anytime she needed to talk
--- NOTE | 2025-08-28 04:35 | NUR ---
SHIFT SUMMARY Patient remains alert and oriented and participating in activities of the milieu. At around 2100, she asked to speak with this nurse in the sensory room. She was tearful and anxious and said she felt as is she was not ready to be discharged so soon. (please see nurses note) She is afraid she will become increasingly suicidal the first time she "hits a bump in the road". She asked if there was any way to transfer her somewhere else if she had to go before she felt ready. HS meds were given including her Zyprexa and a PRN Melatonin. She had had PRN hydroxizine earlier in the evening for a MASS score of 3. After approximately 20 minutes in the sensory room and some supportive conversation, she was able to come back out and join her peers. will continue close observation every 15 minutes for comfort and safety per unit protocol. Sleep time thus far is approximately 7 hours.
[2025-08-28 07:52] LABS: CHOL/HDL RATIO 2.2; Cholesterol 180 mg/dL (50-200); HDL Cholesterol 82 mg/dL (>39); LDL/HDL RATIO 1.0; Low Density Lipoprotein Chol 86 mg/dL (0-110); Triglycerides 62 mg/dL (30-140); Very Low Density Lipoprot Chol 12 mg/dL (6-28)
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
--- NOTE | 2025-08-28 16:20 | NUR ---
SHIFT SUMMARY PT AA&O TO ALL. SPEECH AND EYE CONTACT APPROPRIATE. SHE DENIES SI, AVH. SHE REPORTS MOOD TIRED AFFECT IS CONGRUENT. PT IS COMPLIANT WITH MEDICATIONS. ABILIFY INCREASED FROM 15MG TO 20MG. PT IS TOLERATING WELL. SHE DENIES ANY ADVERSE EFFECTS. PT UP FOR SHOWER, MEALS, AND GROUPS. SHE HAD AN INTAKE WITH [facility] FOR POSSIBLE PLACEMENT IN TREATMENT. SHE WILL NOT BE ALLOWED BACK TO [facility] BUT MAY BE PLACED WITH [facility]. PT REQUESTED MIRALAX FOR CONSTIPATION. HAS NOT NEEDED ANY OTHER PRNS AT THIS POINT. WILL CONTINUE POC
[2025-08-28 19:35] VITALS: BP 118/73
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
--- NOTE | 2025-08-28 21:56 | NUR ---
MID SHIFT SUMMARY FOR REPORT OFF: PT STILL C/O SOME ANXIETY AFTER SNACK TIME. CONCERNED ABOUT GETTING GOOD SLEEP. MEDICATED WITH EVENING MEDICATIONS PER EMAR AND WENT TO BED AFTER WATCHING MOVIE FOR SHORT TIME IN TV ROOM.
--- NOTE | 2025-08-29 04:39 | NUR ---
SHIFT SUMMARY: THIS RN TOOK OVER CARE OF THE PATIENT AT 2300. PATIENT WAS IN BED RESTING WITH EYES CLOSED AND RESPIRATIONS CONFIRMED FROM 2300 ON. NO ISSUES OR CONCERNS NOTED. CONTINUING TO MONITOR FOR SAFETY WITH Q15 MINUTE CHECKS.
[2025-08-29 07:00] VITALS: BP 104/69
--- NOTE | 2025-08-29 17:39 | NUR ---
SHIFT SUMMARY PT DENIES SI, HI, AVTH. C/O OF ANXIETY D/T ANOTHER PT'S AGITATION EARLIER IN DAY, TREATED PER EMAR. PT WENT TO GROUP/MEALS INITIALLY, THEN C/O OF NAUSEA AND ZOFRAN GIVEN. PT HAS SINCE BEEN IN ROOM SLEEPING/RESTING QUIETLY. IS NOW CURRENTLY IN DINING ROOM EATING DINNER. PT NOTIFIED OF VISIT TODAY AND STATED SHE WANTED TO CANCEL IT D/T NOT WANTING A SUPERVISED VISIT/DISCHARGE TOMORROW. NO OTHER ACUTE EVENTS TODAY.
[2025-08-29 19:04] VITALS: BP 114/69
--- NOTE | 2025-08-30 04:58 | NUR ---
SHIFT SUMMARY: PATIENT WAS IN HER ROOM AT THE BEGINNING OF THE SHIFT. SHE PRESENTED ANXIOUS AND SOMEWHAT TEARFUL. SHE CAME OUT TO INTERACT WITH STAFF AND PEERS, AND WAS ABLE TO ANSWER GEOTECHNICAL INTERN QUESTIONS IN A LOGICAL AND LINEAR MANNER. SHE DENIED SUICIDAL IDEATION, THOUGHTS OF SELF HARMING AND A/V/T HALLUCINATIONS. SHE GOT A TELEPHONE CALL FROM HER "BOYFRIEND", AND SHE CALLED HIM BACK AFTER A PEER WAS FINISHED USING THE PHONE. THE CALL "WENT WELL" PER PATIENT, AND HER MOOD BRIGHTENED. SHE PARTICIPATED IN SNACK AND WRAP UP GROUP IN THE DINING AREA AT 1999, AND WAS COMPLIANT WITH MEDICATION ADMINISTRATION. SHE THEN WENT BACK TO HER ROOM, WHERE SHE WAS NOTED TO BE IN BED RESTING WITH EYES CLOSED AND RESPIRATIONS CONFIRMED FOR THE REMAINDER OF THE SHIFT. CONTINUING TO MONITOR FOR SAFETY WITH Q15 MINUTE CHECKS.
[2025-08-30] MEDS ORDERED: ABILIFY MYCITE20 M2 PO (08:17)
[2025-08-30] MEDS ORDERED: OLAN7.5 PO (08:18)
[2025-08-30 08:42] VITALS: BP 107/70
--- NOTE | 2025-08-30 10:51 | NUR ---
IMPORTANT DISCHARGE INFORMATION PATIENT TO BE DISCHARGED TODAY. [facility] WILL BE COMING TO GET HER AROUND 11AM. FOLLOW UP WITH [facility] OPEN ACCESS AND CRISIS UNIT. THEY WILL CALL HER FOR FOLLOW UP APPOINTMENTS. WE HAVE SUBMITTED APPLICATION FOR ADMISSION WITH [facility]. THEY HAVE BEEN INSTRUCTED TO CALL HER WITH AVAILABILITY. RESOURCES GIVEN FOR: [facility]. THEY ARE WILLING TO DO AN ASSESSMENT FOR SERVICES TODAY. PHARMACY: [facility] FAX NUMBER IS RESOURCES GIVEN
--- NOTE | 2025-08-30 11:12 | NUR ---
DISCHARGE SUMMARY PT DC FROM [facility] AT 1102 VIA TRANSPORT TO HER REQUESTED DC ADDRESS. NEW SCRIPTS WERE SENT TO [facility] PER HER REQUEST. PT WAS PROVIDED WITH SWEAT PANTS AND A LONG SLEEVE TSHIRT, UNDERWEAR AND SHOES. ALL DC PAPERS WERE PROVIDED
== END 2025-08-30 11:02 | disposition home or self-care (01) | DRG 885 ==
LOC: BHU 14:51
PROVIDERS: Psychiatry & Neurology Psychiatry; ADMIT Psychiatry & Neurology Psychiatry
PROC: 3E0234Z Introduction of Serum, Toxoid and Vaccine into Muscle, Percutaneous Approach (ICD-10-PCS; principal; 2025-08-24)
DX: F20.9 Schizophrenia, unspecified (principal); R45.851 Suicidal ideations; F15.10 Other stimulant abuse, uncomplicated; Z88.8 Allergy status to other drugs, medicaments and biological substances; Z79.899 Other long term (current) drug therapy; Z79.1 Long term (current) use of non-steroidal anti-inflammatories (NSAID); Z23 Encounter for immunization
CPT/HCPCS: 36415; 80061; 83036; A9270

== ENCOUNTER 2025-10-01 13:15 | Observation (INO) | payer OTHER ==
[~2025-10-01] VITALS: Ht 167.6 cm; Wt 59.0 kg
[~2025-10-01 13:15] MED LIST changes: +ABILIFY MYCITE20 M2 PO; +OLAN10 PO; +OLAN7.5 PO
[2025-10-01 13:57] LABS: BASOPHILS ABSOLUTE AUTO 0.04 K/mm3 (0.00-0.23); BASOPHILS PERCENT AUTO 1 % (0-2); EOSINOPHILS ABSOLUTE AUTO 0.27 K/mm3 (0.00-0.68); EOSINOPHILS PERCENT AUTO 4 % (0-6); Hematocrit 45.1 % (33.0-51.0); Hemoglobin 15.0 g/dL (11.5-16.0); IMMATURE GRAN ABSOLUTE AUTO 0.03 K/mm3 (0.00-0.10); IMMATURE GRAN PERCENT AUTO 0 % (0-1); LYMPHOCYTES ABSOLUTE AUTO 1.48 K/mm3 (0.84-5.20); LYMPHOCYTES PERCENT AUTO 21 % (21-46); MONOCYTES ABSOLUTE AUTO 0.50 K/mm3 (0.16-1.47); MONOCYTES PERCENT AUTO 7 % (4-13); Mean Corpuscular HGB Conc 33.3 g/dL (31.5-36.5); Mean Corpuscular Volume 89 fL (80-100); NEUTROPHILS ABSOLUTE AUTO 4.91 K/mm3 (1.96-9.15); NEUTROPHILS PERCENT AUTO 68 % (41-73); NRBC ABSOLUTE 0.00 K/mm3 (0.00-0.02); NRBC Auto 0.0 /100 WBC (0.0-0.2); Platelet Count 190 K/mm3 (150-400); RDW Coefficient Variation 13.2 % (11.7-14.2); RDW Standard Deviation 43.6 fL (35.1-46.3)
[2025-10-01 14:27] LABS: Alanine Aminotransfer (ALT/SGP 21 U/L (12-78); Albumin, Blood 4.1 g/dL (3.4-5.0); Albumin/Globulin Ratio 1.1 (0.8-1.8); Anion Gap 6 mmol/L (3-11); Aspartate Aminotrans (AST/SGOT 14 U/L (12-37); Bilirubin, Total 0.9 mg/dL (0.1-1.0); Blood Urea Nitrogen 14 mg/dL (8-24); CO2, Blood 26 mmol/L (21-32); Calcium, Blood 9.1 mg/dL (8.5-10.1); Chloride, Blood 106 mmol/L (98-108); Creatinine, Blood 0.96 mg/dL (0.40-1.00); Ethanol (Alcohol), Blood, Med <3 mg/dL; Globulin, Blood 3.7 g/dL (2.2-4.0); Glucose, Blood 88 mg/dL (70-99); Potassium, Blood 3.8 mmol/L (3.5-5.5); Salicylate <1.7 mg/dL (2.8-20.0); Sodium, Blood 134 mmol/L (136-145); Total Protein, Blood 7.8 g/dL (6.4-8.2)
[2025-10-01 14:31] LABS: Acetaminophen, Random <2.0 ug/mL (10.0-30.0)
[2025-10-01 14:59] LABS: Source, Urine Clean Catch
[2025-10-01 15:07] LABS: Bilirubin, Urine Neg (Neg); Color, Urine Yellow (P-Yellow); Glucose Qualitative, Urine Neg (Neg); Ketones, Urine Neg (Neg); Leukocyte Esterase, Urine 3+ (Neg); Protein, Urine 1+ (Neg); Specific Gravity, Urine 1.020 (1.003-1.022); Urobilinogen, Urine NORM (Normal)
[2025-10-01 15:20] LABS: U Amphetamine Screen DETECTED; U Barbiturate Screen Not Detected; U Benzodiazapine Screen Not Detected; U Buprenorphine Screen Not Detected; U Cannabinoids Screen Not Detected; U Cocaine Screen Not Detected; U Methadone Screen Not Detected; U Methamphetamine Screen DETECTED; U Opiates Screen Not Detected; U Oxycodone Screen Not Detected; U Phencyclidine Screen Not Detected
[2025-10-03 09:11] VITALS: BP 103/62
== END 2025-10-03 13:24 ==
LOC: ER 13:15 → EOR 13:16 → ER 13:16 → ERHOLD 13:16 → EOR 13:16
PROVIDERS: Physician Assistant; ADMIT Emergency Medicine
DX: F29 Unspecified psychosis not due to a substance or known physiological condition (principal); R45.851 Suicidal ideations; F15.10 Other stimulant abuse, uncomplicated; F17.210 Nicotine dependence, cigarettes, uncomplicated; F43.10 Post-traumatic stress disorder, unspecified; F20.9 Schizophrenia, unspecified; F32.A Depression, unspecified; Z79.899 Other long term (current) drug therapy; Z88.8 Allergy status to other drugs, medicaments and biological substances; Z91.018 Allergy to other foods
CPT/HCPCS: 36415; 80053; 80320; 81001; 81025; 85025; 87077; 87086; 87186; 99285; A9270; G0378; G0480